=== PATIENT | male | born 1965 | race Caucasian/White ===

== ENCOUNTER 2017-04-13 11:25 | Emergency (ER) | payer OTHER ==
[~2017-04-13] VITALS: Ht 170.2 cm; Wt 91.1 kg
[~2017-04-13 11:25] MED LIST: ASPEC81 PO; ATOR-24 PO; CRD4 PO; LEVO75TA36 PO; METF500T PO; METO-551 PO; NAPR1TAB9 PO; NRT/50 PO; NTRGSL/4 SL; PANT1TAB3 PO; SIMV80TA2 PO
[2017-04-13 11:28] VITALS: TEMP 38; Ht 170.2 cm; Wt 91.1 kg
[2017-04-13] MEDS ORDERED: ACETAMINOPHEN 500 MG TAB PO STA (11:54)
[2017-04-13] MEDS ORDERED: SODIUM CHLORIDE 0.9% 1000ML 1,000 ML IV STA (11:54)
--- NOTE | 2017-04-13 11:59 | EMERGENCY ROOM VISIT NOTE ---
History Report prepared by Margo: Jennifer Luna Under the Supervision of: Dr. Obdulio Valentine M.D. First contact with patient: 11:45 Chief Complaint: FEVER Stated Complaint: DISORIENTED, DIZZY, FEVER History of Present Illness The patient is a 52 year old male who presents to the Emergency Room with complaints of a persistent fever that began this morning. The patient states he has been disoriented, coughing, dizzy, and sweating. He denies any current chest pain, nausea, vomiting, diarrhea, or urinary symptoms. The patient denies taking any medication to relieve his symptoms. He notes that he began getting a cold about 1-2 days ago. The patient states that he previously had similar esophageal pain, noting it ended up being a heart attack 15 years ago. He states he has an inhaler, noting he does not use. He notes a history of hypertension. The patient states he smokes a pack of cigarettes or more a day. Source of History: patient Onset: this morning Position: other (global) Quality: other (fever) Timing: other (persistent) Associated Symptoms: No chest pain, No nausea, No vomiting, No diarrhea, No urinary symptoms Review of Systems See HPI for pertinent positives and negatives. A total of ten systems were reviewed and were otherwise negative. Past Medical & Surgical Medical Problems: (1) AC MYOCARD INFARC,ANTEROLAT WALL,EPIS CARE,UNSPEC (2) CORON ATHEROSCLER NOS TYPE VESSEL, NEZ PERCE OR GRAFT (3) DIAB MARY WO COMPL, TYPE II OR UNSPEC TYPE, NOT UNCNTRLD (4) HYPERLIPIDEMIA NEC/NOS (5) Placement of stent in coronary artery Family History Diabetes mellitus FHx: heart disease Hypertension Social History Smoking Status: Current Every Day Smoker Alcohol Use: occasionally Drug Use: none Marital Status: Occupation Status: employed Current/Historical Medications Scheduled Aspirin (Aspirin Ec), 162 MG PO DAILY Atorvastatin (Lipitor), 40 MG PO DAILY Azithromycin (Zithromax), 250 MG PO DAILY Doxazosin Mesylate (Doxazosin Mesylate), 4 MG PO DAILY Levothyroxine Sodium (Levothyroxine Sodium), 75 MCG PO DAILY Metformin Hcl (Glucophage), 500 MG PO DAILY Metoprolol Tartrate (Lopressor), 50 MG PO BID Nitroglycerin (Nitrostat), 0.4 MG SL DIRECTED Nortriptyline HCl (Nortriptyline HCl), 50 MG PO HS Pantoprazole (Protonix), 40 MG PO DAILY Prednisone (Prednisone), 3 TAB PO DAILY Simvastatin (Zocor), 80 MG PO QPM Allergies Coded Allergies: No Known Allergies (Unverified , 08/12/15) Physical Exam Vital Signs Date Time Temp Pulse Resp B/P (MAP) Pulse Ox O2 Delivery O2 Flow Rate FiO2 04/13/17 13:48 90 18 106/67 98 04/13/17 13:05 89 26 04/13/17 13:00 88 24 04/13/17 12:55 88 19 04/13/17 12:50 89 20 04/13/17 12:45 87 26 04/13/17 12:40 87 25 97 04/13/17 12:35 90 21 04/13/17 12:30 91 23 04/13/17 12:25 88 15 04/13/17 12:21 85 04/13/17 12:20 90 18 97 Room Air 04/13/17 12:20 86 20 04/13/17 12:12 94 Room Air 04/13/17 11:28 38.0 102 18 118/77 94 Room Air Physical Exam GENERAL: Awake, alert, uncomfortable-appearing, in no distress HENT: Dry mucous membranes. Normocephalic, atraumatic. Oropharynx unremarkable. EYES: Normal conjunctiva. Sclera non-icteric. NECK: Supple. No nuchal rigidity. FROM. No JVD. RESPIRATORY: Scattered wheezes and rhonchi. Clear to auscultation. CARDIAC: Regular rate, normal rhythm. Extremities warm and well perfused. Pulses equal. ABDOMEN: Soft, non-distended. No tenderness to palpation. No rebound or guarding. No masses. RECTAL: Deferred. MUSCULOSKELETAL: Chest examination reveals no tenderness. The back is symmetrical on inspection without obvious abnormality. There is no CVA tenderness to palpation. No joint edema. LOWER EXTREMITIES: Calves are equal size bilaterally and non-tender. No edema. No discoloration. NEURO: Normal sensorium. No sensory or motor deficits noted. SKIN: No rash or jaundice noted. Medical Decision & Procedures ER Provider Diagnostic Interpretation: Radiology results as stated below per my review and radiologist interpretation: CHEST ONE VIEW PORTABLE HISTORY: 52 years-old Male CHEST PAIN acute atypical chest pain COMPARISON: Portable chest radiograph 08/12/2015 TECHNIQUE: Portable AP view of the chest FINDINGS: Cardiomediastinal and hilar silhouettes are within normal limits. No pneumothorax, pleural effusion, focal airspace consolidation or overt pulmonary edema. Linear subsegmental pleural based opacities of the lateral left midlung and left lung base are again seen suggesting areas of atelectasis or scarring. Bones of the chest appear to be grossly intact. IMPRESSION: No acute process. The above report was generated using voice recognition software. It may contain grammatical, syntax or spelling errors. Electronically signed by: Matthieu Pitts M.D. 04/13/2017 12:33 PM Dictated Date/Time: 04/13/2017 12:32 PM Laboratory Results 04/13/17 12:36 Red Blood Count 4.91, Mean Corpuscular Volume 93.3, Mean Corpuscular Hemoglobin 32.2, Mean Corpuscular Hemoglobin Concent 34.5, Mean Platelet Volume 9.4, Neutrophils (%) (Auto) 77.7, Lymphocytes (%) (Auto) 7.9, Monocytes (%) (Auto) 11.0, Eosinophils (%) (Auto) 2.3, Basophils (%) (Auto) 0.5, Neutrophils # (Auto ) 6.78, Lymphocytes # (Auto) 0.69, Monocytes # (Auto) 0.96, Eosinophils # (Auto ) 0.20, Basophils # (Auto) 0.04 04/13/17 12:36 Test 04/13/17 12:36 04/13/17 12:50 White Blood Count 8.72 K/uL (4.8-10.8) Red Blood Count 4.91 M/uL (4.7-6.1) Hemoglobin 15.8 g/dL (14.0-18.0) Hematocrit 45.8 % (42-52) Mean Corpuscular Volume 93.3 fL (80-100) Mean Corpuscular Hemoglobin 32.2 pg (25-34) Mean Corpuscular Hemoglobin Concent 34.5 g/dl (32-36) Platelet Count 221 K/uL (130-400) Mean Platelet Volume 9.4 fL (7.4-10.4) Neutrophils (%) (Auto) 77.7 % Lymphocytes (%) (Auto) 7.9 % Monocytes (%) (Auto) 11.0 % Eosinophils (%) (Auto) 2.3 % Basophils (%) (Auto) 0.5 % Neutrophils # (Auto) 6.78 K/uL (1.4-6.5) Lymphocytes # (Auto) 0.69 K/uL (1.2-3.4) Monocytes # (Auto) 0.96 K/uL (0.11-0.59) Eosinophils # (Auto) 0.20 K/uL (0-0.5) Basophils # (Auto) 0.04 K/uL (0-0.2) RDW Standard Deviation 46.2 fL (36.4-46.3) RDW Coefficient of Variation 13.6 % (11.5-14.5) Immature Granulocyte % (Auto) 0.6 % Immature Granulocyte # (Auto) 0.05 K/uL (0.00-0.02) Anion Gap 7.0 mmol/L (3-11) Est Creatinine Clear Calc Drug Dose 70.5 ml/min Estimated GFR () 72.4 Estimated GFR (Non- 62.4 BUN/Creatinine Ratio 6.8 (10-20) Calcium Level 9.3 mg/dl (8.5-10.1) Total Bilirubin 0.5 mg/dl (0.2-1) Direct Bilirubin < 0.1 mg/dl (0-0.2) Aspartate Amino Transf (AST/SGOT) 72 U/L (15-37) Alanine Aminotransferase (ALT/SGPT) 123 U/L (12-78) Alkaline Phosphatase 93 U/L (45-117) Troponin I < 0.015 ng/ml (0-0.045) Total Protein 7.9 gm/dl (6.4-8.2) Albumin 4.1 gm/dl (3.4-5.0) Lipase 228 U/L (73-393) Influenza Type A (RT-PCR) Neg for Influ A (NEG) Influenza Type A Antigen Neg for Influ A (NEG) Influenza Type B Antigen Neg for Influ B (NEG) Influenza Type B (RT-PCR) POS for Influ B (NEG) Laboratory results reviewed by me Medications Administered Medications (Trade) Dose Ordered Sig/Lillie Route Start Time Stop Time Status Last Admin Dose Admin Sodium Chloride 1,000 ml @ 999 mls/hr Q1H1M STAT IV 04/13/17 11:54 04/13/17 12:54 DC 04/13/17 12:29 999 MLS/HR Acetaminophen (Tylenol Tab) 1,000 mg NOW STAT PO 04/13/17 11:54 04/13/17 12:00 DC 04/13/17 12:27 1,000 MG Albuterol/ Ipratropium (Duoneb) 12 ml ONE ONCE INH 04/13/17 12:00 04/13/17 12:01 DC 04/13/17 12:19 12 ML Prednisone (PredniSONE TAB) 60 mg NOW STAT PO 04/13/17 11:54 04/13/17 12:01 DC 04/13/17 12:27 60 MG Azithromycin (Zithromax Tab) 500 mg NOW ONCE PO 04/13/17 13:30 04/13/17 13:31 DC 04/13/17 13:47 500 MG ECG Indication: other (fever) Rate (beats per minute): 91 Rhythm: normal sinus Findings: no acute ischemic change, other (normal axis) ED Course 1248: The patient was evaluated in room C3. A complete history and physical exam was performed. 1333: I reevaluated the patient, who was feeling significantly better. I discussed the test findings and treatment plan with the patient, who verbalized complete understanding and agreement. The patient was discharged home. Medical Decision I reviewed the patient's past medical history, medications, and the nursing notes as described above. The patient's presentation and history were concerning for pneumonia, bronchitis , influenza, ACS, CHF, and COPD. The patient is 52-year-old gentleman with a past medical history of smoking one pack per day presents to the emergency department with cough congestion shortness of breath per hpi. Arrival the patient is uncomfortable but in no acute distress, Temp 38.0 with otherwise stable vital signs. Labs unremarkable. CXR negative for pneumonia. She was given steroids with nebulizer with improvement in symptoms. The patient's productive sputum and history of smoking will treat with azithromycin. Findings and plan for follow- up reviewed with patient. Patient agreeable and d/c'd per discharge instructions. Of note, after patient's discharge, patient's reflex influenza PCR return positive for influenza A. Considering his symptom onset with was within 48 hours and comorbidities of smoking, prescription for Tamiflu was called to his pharmacy and patient was updated. Medication Reconcilliation Current Medication List: was personally reviewed by me Impression Primary Impression: Acute bronchitis Scribe Attestation The scribe's documentation has been prepared under my direction and personally reviewed by me in its entirety. I confirm that the note above accurately reflects all work, treatment, procedures, and medical decision making performed by me. Departure Information Dispostion Home / Self-Care Prescriptions Prednisone (Prednisone) 20 Mg Tab 3 TAB PO DAILY for 4 Days, #12 TAB FOR 4 DAYS Prov: Obdulio Valentine M.D. 04/13/17 Azithromycin (Zithromax) 250 Mg Tab 250 MG PO DAILY, #4 TAB Prov: Obdulio Valentine M.D. 04/13/17 Referrals Dario Modi M.D. (MEDICAL) (PCP) Forms HOME CARE DOCUMENTATION FORM, IMPORTANT VISIT INFORMATION Patient Instructions ED Bronchitis Asthmatic, ED Smoking Cessation, My [facility] Additional Instructions Please follow up with your primary care physician on Sunday for re-evaluation. You likely have an acute bronchitis. Otherwise, your exam, EKG, and lab results did not show signs of an emergent condition at this time. Azithromycin and Prednisone as directed. Use your inhaler every 4 hours for the next 48 hours and then thereafter as needed. Ensure hydration You should consider stopping smoking as this will help relieve and help prevent your current symptoms. Return to the emergency department for worsening symptoms as described in the accompanying instructions.
[2017-04-13] MEDS ORDERED: ALBUT/IPRATROP 3MG/0.5MG NEB 3 ML VIAL INH ONE (12:00)
[2017-04-13] MEDS ORDERED: ASPI81TA28 PO (12:07)
[2017-04-13] MEDS ORDERED: LEVO75TA5 PO (12:07)
[2017-04-13 12:12] VITALS: O2SAT 94
[2017-04-13 12:20] VITALS: PULSE 90; O2SAT 97
--- NOTE | 2017-04-13 12:34 | DIAGNOSTIC IMAGING REPORT ---
CHEST ONE VIEW PORTABLE HISTORY: 52 years-old Male CHEST PAIN acute atypical chest pain COMPARISON: Portable chest radiograph 08/12/2015 TECHNIQUE: Portable AP view of the chest FINDINGS: Cardiomediastinal and hilar silhouettes are within normal limits. No pneumothorax, pleural effusion, focal airspace consolidation or overt pulmonary edema. Linear subsegmental pleural based opacities of the lateral left midlung and left lung base are again seen suggesting areas of atelectasis or scarring. Bones of the chest appear to be grossly intact. IMPRESSION: No acute process. The above report was generated using voice recognition software. It may contain grammatical, syntax or spelling errors. Electronically signed by: Matthieu Pitts M.D. 04/13/2017 12:33 PM Dictated Date/Time: 04/13/2017 12:32 PM
[2017-04-13 12:47] LABS: BASO % 0.5 %; BASO ABS # 0.04 K/uL (0-0.2); EOS % 2.3 %; HEMATOCRIT 45.8 % (42-52); HEMOGLOBIN 15.8 g/dL (14.0-18.0); IG# 0.05 K/uL (0.00-0.02); LYMPH % 7.9 %; LYMPH ABS # 0.69 K/uL (1.2-3.4); MEAN CELL VOLUME 93.3 fL (80-100); MEAN CORPUSCULAR HEMOGLOBIN 32.2 pg (25-34); MEAN CORPUSCULAR HGB CONC 34.5 g/dl (32-36); MEAN PLATELET VOLUME 9.4 fL (7.4-10.4); MONO ABS # 0.96 K/uL (0.11-0.59); NEUT % 77.7 %; NEUT ABS # 6.78 K/uL (1.4-6.5); PLATELET COUNT 221 K/uL (130-400); RED CELL DISTRIBUTION WIDTH CV 13.6 % (11.5-14.5); RED CELL DISTRIBUTION WIDTH SD 46.2 fL (36.4-46.3); WHITE BLOOD COUNT 8.72 K/uL (4.8-10.8)
[2017-04-13 13:04] LABS: ALBUMIN 4.1 gm/dl (3.4-5.0); ALT/SGPT 123 U/L (12-78); AST/SGOT 72 U/L (15-37); BLOOD UREA NITROGEN 9 mg/dl (7-18); CALCIUM 9.3 mg/dl (8.5-10.1); CARBON DIOXIDE 28 mmol/L (21-32); CREATININE 1.29 mg/dl (0.60-1.40); GLUCOSE 97 mg/dl (70-99); LIPASE 228 U/L (73-393); SODIUM 137 mmol/L (136-145)
[2017-04-13 13:10] LABS: ALKALINE PHOSPHATASE 93 U/L (45-117); TOTAL PROTEIN 7.9 gm/dl (6.4-8.2)
[2017-04-13] MEDS ORDERED: AZITHROMYCIN 250 MG TAB PO ONE (13:30)
[2017-04-13] MEDS ORDERED: PRED20TA PO (13:35)
[2017-04-13] MEDS ORDERED: AZIT250T PO (13:35)
[2017-04-13 13:48] VITALS: BP 106/67; PULSE 90; O2SAT 98
[2017-04-13 14:12] LABS: INFLUENZA A PCR Neg for Influ A (NEG); INFLUENZA B ANTIGEN Neg for Influ B (NEG)
[2017-04-13 14:14] LABS: INFLUENZA B PCR POS for Influ B (NEG)
--- NOTE | 2017-04-13 16:58 | Pharmacy Progress Note ---
ED Pharmacist Progress Note Date of Service: Apr 13, 2017. Received call from patient's in regards to tamiflu prescription that was to be called in to [facility] in [place]- patient went to store but only received prednisone and azithromycin. Followed up with [facility]. I spoke with the pharmacist who confirmed the prescription was received and being filled. Called back patient and informed them the prescription was received and being filled.
== END 2017-04-13 13:51 | disposition home or self-care (01) ==
LOC: C.EDB 11:27
DX: J20.9 Acute bronchitis, unspecified (principal); J11.1 Influenza due to unidentified influenza virus with other respiratory manifestations; I10 Essential (primary) hypertension; F17.210 Nicotine dependence, cigarettes, uncomplicated; I25.2 Old myocardial infarction; I25.10 Atherosclerotic heart disease of native coronary artery without angina pectoris; E11.9 Type 2 diabetes mellitus without complications; E78.5 Hyperlipidemia, unspecified; Z95.5 Presence of coronary angioplasty implant and graft; Z79.82 Long term (current) use of aspirin; Z79.84 Long term (current) use of oral hypoglycemic drugs; Z83.3 Family history of diabetes mellitus; Z82.49 Family history of ischemic heart disease and other diseases of the circulatory system

== ENCOUNTER 2017-11-11 21:40 | Emergency (ER) | payer OTHER ==
[~2017-11-11] VITALS: Ht 167.6 cm; Wt 87.0 kg
[~2017-11-11 21:40] MED LIST changes: -ASPEC81 PO; +ASPI81TA28 PO; -LEVO75TA36 PO; +LEVO75TA5 PO; -NAPR1TAB9 PO
[2017-11-11 21:54] VITALS: TEMP 36.8; Ht 167.6 cm; Wt 87.0 kg
[2017-11-11] MEDS ORDERED: LISI-461 PO (22:09)
[2017-11-11] MEDS ORDERED: AZITHROMYCIN 250 MG TAB PO ONE (22:15)
[2017-11-11] MEDS ORDERED: AZIT250T PO (22:30)
[2017-11-11] MEDS ORDERED: PRED20TA2 PO (22:30)
[2017-11-11 22:39] VITALS: BP 129/76; PULSE 91; O2SAT 99
--- NOTE | 2017-11-12 05:24 | EMERGENCY ROOM VISIT NOTE ---
History First contact with patient: 22:08 Chief Complaint: CONGESTION Stated Complaint: COLD, STUFFY NOSE Nursing Triage Summary: Patient reports nasal congestion and cough x1 1/2 weeks. States nasal drainage is yellowish-green. Denies fevers. History of Present Illness The patient is a 52 year old male who presents to the Emergency Room with complaints of sinus congestion, cough, and wheezing over the past 10 days. The patient has a history of COPD and has not had anything [id number] for his symptoms. The patient denies fever or chills. He has had pneumonia in the past and this is what he is concerned about. The patient rates his current discomfort a 4/10. His discomfort seems to worsen at night. Review of Systems More than 10 systems were reviewed and otherwise negative with the exception of history of present illness. Past Medical/Surgical History Medical Problems: (1) AC MYOCARD INFARC,ANTEROLAT WALL,EPIS CARE,UNSPEC (2) CORON ATHEROSCLER NOS TYPE VESSEL, [place] OR GRAFT (3) DIAB MARY WO COMPL, TYPE II OR UNSPEC TYPE, NOT UNCNTRLD (4) HYPERLIPIDEMIA NEC/NOS (5) Placement of stent in coronary artery Family History Diabetes mellitus FHx: heart disease Hypertension Social History Smoking Status: Current Every Day Smoker Alcohol Use: occasionally Drug Use: none Marital Status: Occupation Status: employed Current/Historical Medications Scheduled Aspirin (Aspirin Ec), 162 MG PO DAILY Atorvastatin (Lipitor), 40 MG PO DAILY Azithromycin (Zithromax), 250 MG PO DAILY Doxazosin Mesylate (Doxazosin Mesylate), 4 MG PO DAILY Levothyroxine Sodium (Levothyroxine Sodium), 75 MCG PO DAILY Lisinopril (Lisinopril), 10 MG PO DAILY Metformin Hcl (Glucophage), 500 MG PO DAILY Nitroglycerin (Nitrostat), 0.4 MG SL DIRECTED Nortriptyline HCl (Nortriptyline HCl), 50 MG PO HS Pantoprazole (Protonix), 40 MG PO DAILY Prednisone (Prednisone Tab), 2 TAB PO DAILY Simvastatin (Zocor), 80 MG PO QPM Physical Exam Vital Signs Date Time Temp Pulse Resp B/P (MAP) Pulse Ox O2 Delivery O2 Flow Rate FiO2 11/11/17 22:39 91 20 129/76 99 11/11/17 21:54 36.8 97 20 132/79 98 Room Air Physical Exam VITALS: Vitals are noted on the nurse's note and reviewed by myself. Vital signs stable. GENERAL: Well-developed, well-nourished, white male, who is in no acute distress and resting comfortably. Patient is cooperative with the examination. HEAD: Normocephalic atraumatic. EARS: External ear normal. External auditory canals clear, tympanic membranes pearly de jesus without erythema or effusion bilaterally. EYES: Pupils equal round and reactive to light and accommodation. Conjunctivae without injection, sclerae without icterus. Extraocular movements intact. NOSE: Patent, turbinates without inflammation or discharge. MOUTH: Mucous membranes moist. Tonsils are not enlarged. Pharynx without erythema, blood, or exudate. Uvula midline. Airway patent. NECK: Supple without nuchal rigidity. No lymphadenopathy. No thyromegaly. Cervical spine is nontender. HEART: Regular rate and rhythm without murmurs gallops or rubs. LUNGS: Coarse rhonchi throughout with scattered wheezing Medical Decision & Procedures Medications Administered Medications (Trade) Dose Ordered Sig/Lillie Route Start Time Stop Time Status Last Admin Dose Admin Azithromycin (Zithromax Tab) 500 mg NOW ONCE PO 11/11/17 22:15 11/11/17 22:16 DC 11/11/17 22:23 500 MG Prednisone (PredniSONE TAB) 20 mg NOW STAT PO 11/11/17 22:13 11/11/17 22:15 DC 11/11/17 22:24 20 MG ED Course Physical exam and history were performed. Nursing notes, EMR, and Medication List were personally reviewed. Patient appears to have chest congestion symptoms for the past 10 days. On examination he does have some wheezing rhonchi throughout. He does have a history of some mild COPD. He does not appear in acute respiratory failure or other distress. I discussed options of care with the patient, and will start him on Zithromax and prednisone here in the department. The patient will be given a continuation prescriptions of these medications. He was asked to follow with his primary care physician in the next few days for recheck. He was otherwise invited back to the ER with any new, worsening, or concerning symptoms. The chart was completed utilizing [employer] Voice Recognition Software. Grammatical errors, random word insertions, pronoun errors, and incomplete sentences are an occasional consequence of this system due to software limitations, ambient noise, and hardware issues. Any formal questions or concerns about the content, text, or information contained within the body of this dictation should be directly addressed to the provider for clarification. . Medical Decision Differential diagnosis: Etiologies such as infections, reactive airway disease, pneumonia, pneumothorax , COPD, CHF, cardiac ischemia, pulmonary embolism, musculoskeletal, gastrointestinal, as well as others were entertained. Impression Primary Impression: Acute bronchitis Departure Information Dispostion Home / Self-Care Condition GOOD Prescriptions Prednisone (Prednisone Tab) 20 Mg Tab 2 TAB PO DAILY for 4 Days, #8 TAB Prov: Matty Amaya PA-C 11/11/17 Azithromycin (Zithromax) 250 Mg Tab 250 MG PO DAILY for 4 Days, #4 TAB Prov: Matty Amaya PA-C 11/11/17 Forms HOME CARE DOCUMENTATION FORM, IMPORTANT VISIT INFORMATION Patient Instructions My [facility] Additional Instructions You were seen and evaluated today on an emergency basis only. This is not a substitute for, or an effort to provide, complete comprehensive medical care. It is not possible to recognize and treat all injuries or illnesses in a single emergency department visit. For this reason it is recommended that you followup with your primary care physician with any ongoing or persisting symptoms. Take Zithromax 250 mg daily for the next 4 days. Take prednisone 40 mg daily for the next 4 days. You are welcome to return to the emergency department anytime with new, worsening, or concerning symptoms.
== END 2017-11-11 22:39 | disposition home or self-care (01) ==
LOC: C.EDB 21:42 → C.EDA 22:39
DX: J20.9 Acute bronchitis, unspecified (principal); I25.2 Old myocardial infarction; I25.10 Atherosclerotic heart disease of native coronary artery without angina pectoris; E11.9 Type 2 diabetes mellitus without complications; E78.5 Hyperlipidemia, unspecified; F17.200 Nicotine dependence, unspecified, uncomplicated; Z79.82 Long term (current) use of aspirin

== ENCOUNTER 2024-07-06 21:35 | Observation (INO) ==
--- OUTSIDE RECORDS SUMMARY | 2024-07-06 21:41 | External Medical Summary | Summary of Care ---
Author Name Unknown Organization [facility] Address [address] [place] [address] Phone [phone] Care Team Providers Care Immigration Specialist Name Role Phone Mariaa Paige PA-C Primary Care Provider [phone] Encounter Details Date Type Department Care Team (Late st Contact Info) Description 04/28/2024 Population Health External Data Unspecified Department Allergies No known active allergiesdocumented as of this encounter (statuses as of 04/28/2024) Medications ASPIRIN 81 MG PO CHEW Take by mouth every afternoon . 60 Tab 5 4 Active Tamsulosin HCl 0.4 MG Oral Capsule (Flomax)Indication s:BPH with obstruction/lower urinary tract symptoms Take 1 Capsule by mouth in the morning. 90 Capsule 3 Active Omeprazole 20 MG Oral Capsule Delayed Release (PriLOSEC)Indicati ons:Gastroesophage al reflux disease without esophagitis take 1 capsule by mouth every morning and 1 capsule by mouth BEFORE BEDTIME 180 Capsule 1 4 Active Lisinopril 10 MG Oral Tablet (Prinivil)Indicati ons:ASCVD (arteriosclerotic cardiovascular disease),Type 2 diabetes mellitus with hemoglobin A1c goal of less than 7.0% (HCC),Old myocardial infarction,Essenti al hypertension with goal blood pressure less than 140/90 Take 1 Tablet by mouth in the morning. 90 Tablet 2 4 Active Levothyroxine Sodium 100 MCG Oral Tablet (Levoxyl)Indicatio ns:Acquired hypothyroidism take 1 tablet by mouth every morning 30 MINUTES PRIOR TO BREAKFAST OR OTHER MEDS 90 Tablet 2 4 Active Finasteride 5 MG Oral Tablet (Proscar) Take 1 Tablet by mouth in the morning. 90 Tablet 3 4 Active Famotidine 40 MG Oral Tablet (Pepcid)Indication s:Heartburn Take 1 Tablet by mouth at bedtime as needed for Heartburn. 90 Tablet 1 4 Active Glucose Blood In Vitro StripIndications:T ype 2 diabetes mellitus with hemoglobin A1c goal of less than 7.0% ([facility]) Use up to four times a day as directed 400 Strip 3 4 Active B-12-SL 1000 MCG Sublingual Tablet Sublingual (Cyanocobalamin)In dications:Malaise and fatigue,B12 deficiency Place 1,000 mcg under the tongue in the morning. 90 Tablet 3 4 Active Magnesium 400 MG Oral TabletIndications: Intractable tension-type headache, unspecified chronicity pattern Take 400 mg by mouth at bedtime. To prevent headaches 90 Tablet 1 4 Active Riboflavin 400 MG Oral TabletIndications: Intractable tension-type headache, unspecified chronicity pattern Take 1 Tablet by mouth in the morning. For headache -prevention. 90 Tablet 1 4 Active Ketorolac Tromethamine 10 MG Oral Tablet (Toradol)Danieltio ns:Intractable tension-type headache, unspecified chronicity pattern Take 1 Tablet by mouth 4 times a day as needed for Pain, Severe. Do not take for longer than 5 days 20 Tablet 4 Active Rizatriptan Benzoate 10 MG Oral Tablet Disintegrating (Maxalt[employer])Indica tions:Intractable tension-type headache, unspecified chronicity pattern Take 1 Tablet by mouth as needed for Migraine. at onset of headache, may repeat every 2 hours. No more than 3 pills in 24 hours 20 Tablet 3 4 Active Rosuvastatin Calcium 40 MG Oral Tablet (Crestor)Danieltio ns:ASCVD (arteriosclerotic cardiovascular disease),Mixed dyslipidemia TAKE 1 TABLET BY MOUTH EVERY DAY IN THE MORNING 90 Tablet 1 4 Active Escitalopram Oxalate 10 MG Oral Tablet (Lexapro)Danieltio ns:Moderate episode of recurrent major depressive disorder (HCC) Take 1.5 Tablets by mouth in the morning. 135 Tablet 3 4 Active Topiramate 100 MG Oral Tablet (topAMAX)Indicatio ns:Intractable chronic cluster headache TAKE 1 TABLET BY MOUTH IN THE MORNING AND BEFORE BEDTIME 180 Tablet 4 Active glipiZIDE ER 5 MG Oral Tablet Extended Release 24 Hour (glipiZIDE XL)Indications:Typ e 2 diabetes mellitus with hemoglobin A1c goal of less than 7.0% (HCC) Take 1 Tablet by mouth in the morning. 30 minutes before a meal.. 90 Tablet 1 5 Active traZODone HCl 50 MG Oral Tablet (Desyrel)Indicatio ns:Insomnia, unspecified type,Agitation Take 1 Tablet by mouth at bedtime. 90 Tablet 2 5 Active Pindolol 5 MG Oral TabletIndications: Essential tremor Take 1 Tablet by mouth in the morning and 1 Tablet before bedtime. 60 Tablet 1 5 Active Hospital, Clinic, or Other Facility Administered Medication Ordered Dose Route Frequency Start Date End Date Status albuterol sulfate (PROVENTIL) (2.5 MG/3ML) 0.083% inhalation solution 2.5 mgIndications:COPD, severity to be determined ([facility]) 2.5 mg NEBULIZER Q4H PRN 07/26/2017 Active documented as of this encounter (statuses as of 04/28/2024) Active Problems Problem Noted Date Diagnosed Date Chronic obstructive pulmonary disease 04/23/2023 Moderate episode of recurrent major depressive d isorder 04/23/2023 S/P laparoscopic cholecystectomy 03/29/2018 Overview (03/29/2018): s/p a lap bilateral inguinal hernia repairs with mesh and lap [facility] on 02/18/2018 Screen for colon cancer 03/29/2018 Familial colorectal cancer 03/29/2018 NAFL (nonalcoholic fatty liver) 12/21/2017 Overweight (BMI 25.0-29.9) 12/21/2017 HTN, goal below 130/80 06/07/2017 Dyslipidemia, goal LDL below 70 12/01/2016 Overview (04/06/2018): 03/26-HC nml, lipids improved on crestor. Left knee DJD 02/27/2013 Vitamin D deficiency 02/17/2013 Old myocardial infarction 08/08/2012 Postsurgical percutaneous tr ansluminal coronary angioplasty status 08/08/2012 Acquired hypothyroidism 02/22/2012 Type 2 diabetes mellitus wit h hemoglobin A1c goal of less than 7.0% 02/22/2012 Overview (08/03/2015): ICD-10 update of inactive term Chronic rhinitis 09/21/2011 ASCVD (arteriosclerotic cardiovascular disease) 09/21/2011 Tobacco use disorder 09/21/2011 BPH with obstruction/lower urinary tract symptom s documented as of this encounter (statuses as of 04/28/2024) Resolved Problems Problem Noted Date Diagnosed Date Resolved Date Dyslipidemia, goal LDL below 70 12/05/2016 06/07/2017 Obesity, Class I, BMI 30.0-3 4.9 (see actual BMI) 06/22/2016 12/01/2016 Overview (06/22/2016): bmi= 30.13 06/22/16 Screening for prostate cancer 04/06/2015 12/01/2016 Screen for colon cancer 06/24/201311/08 Hematuria 04/21/2013 04/06/2015 Acute URI 04/15/2013 04/06/2015 Special screening for malign ant neoplasm of prostate 02/17/2013 12/01/2016 Screening for colon cancer 02/17/2013 0 12/01/2016 Left knee DJD 07/26/2012 04/06/2015 Abdominal pain 05/16/2012 12/01/2016 Old myocardial infarct 02/22/201208/08 Mixed dyslipidemia 02/22/2012 8 BPH without obstruction/lowe r urinary tract symptoms 02/22/2012 06/07/2017 Dyslipidemia, goal LDL below 100 01/16/2012 12/01/2016 Hypertriglyceridemia 01/16/2012 015 Diarrhea 09/21/2011 12/01/2016 Overweight, BMI 28.59 01/12/11 01/12/2011 12/01/2016 Type 2 diabetes mellitus wit h hemoglobin A1c goal of less than 7.0% 04/21/2010 05/16/2012 Overview (08/03/2015): ICD-10 update of inactive term DM type 1, not at goal 01/20/201004/21 Hypothyroidism 01/18/2010 02/22/2012 Acute conjunctivitis 08/05/2009 015 Dyslipidemia, goal LDL below 70 03/25/2009 01/16/2012 Overview (03/25/2009): Per Lipid Taxonomy. Abnormal results of liver function studies 11/12/2008 04/06/2015 DERMATITIS, EAR CANALS 09/11/200804/06 PAIN IN LIMB, LEFT ELBOW 09/11/2008 Allergic rhinitis 09/11/2008 04/06/2015 OVERWEIGHT, BMI= 27.12 09/11/08 09/11/2008 12/01/2016 High triglycerides 04/01/2008 2 ADVANCE DIRECTIVE INFORMATION 12/30/2004 04/06/2015 Overview (12/30/2004): no advance directive- has info Old myocardial infarct 12/30/200302/21 Tobacco use disorder 12/30/2003 012 ROUTINE MEDICAL EXAM 12/30/2003 015 Malaise and fatigue 12/30/2003 12/31/19 05 Polyuria 12/30/2003 12/30/2004 TENDONITIS, LEFT SHOULDER 01/06/2003 Chest pain 12/25/2002 12/30/2003 S/P PRIMARY ANGIOPLASTY WITH STENT 12/25/2002 08/08/2012 Esophageal reflux 12/25/2002 04/06/2015 Femoral artery hematoma comp licating cardiac catheterization 11/21/2002 03/29/2018 Mixed dyslipidemia 11/21/2002 9 Overview (03/25/2009): Per Lipid Taxonomy. Coronary atherosclerosis 11/21/200205/2012 ASCVD 11/19/2002 08/08/2012 Contusion of wrist 04/29/2001 4 SPRAINS AND STRAINS, WRIST, EXTENSOR TENDONS 2 12/30/2003 documented as of this encounter (statuses as of 04/28/2024) Immunizations Name Administration Dates Next Due PPD 08/08/2012 Pneumococcal Polysaccharide PPV23 (Pneumovax) 03/02/2008 Seasonal Influenza Vac., MDV , IM, 0.5 mL (Fluzone) 03/31/2014,02/17/2013,12/22/2011,12/09,12/28/2009,04/16/2009,03/02/20 08,02/13/2007 03/31/2015 Seasonal Influenza, PF, 6 M & above, IM , (FluLaval or Fluzone) 02/03/2019,12/21/2017 Seasonal Influenza, Quadriva lent, No Preserve, IM 02/17/2016,04/06/2015 TDAP, Age 7 and older, IM (Adacel) 04/17,08/05/2008,08/05/2008(Defe rred: Patient Refused - has ma) documented as of this encounter Social History Tobacco Use Types Packs/Day Years Used Date Smoking Tobacco: Every Day Cigarettes 1.5 36 Smokeless Tobacco: Never Alcohol Use Standard Drinks/Week Comments Not Currently 0 (1 standard drink = 0.6 oz pur e alcohol) none PHQ-2 Answer Date Recorded PHQ Adult Total Score 0 07/17/2023 Hunger Vital Sign Answer Date Recorded Within the past 12 months, y ou worried that your food would run out before you got the money to buy more. Never true 05/16/19 24 Within the past 12 months, t he food you bought just didn't last and you didn't have money to get more. Never true 05/16/2023 Childcare Answer Date Recorded Do you feel overwhelmed with taking care of a child, family member or friend? No 05/16/2023 Does your family need help f inding childcare? (Household - for ages 0-17 years) Not on file 05/16/2023 Clothing Answer Date Recorded Have you been unable to get clothing when it was really needed? No 05/16/2023 Is your family able to get c lothes or diapers when needed? (Household - for ages 0-17 years) Not on file 05/16/2023 Personal Safety Answer Date Recorded Do you feel unsafe or have concerns for your saf ety? No 05/16/2023 Do you have concerns for you r family's safety? (Household - for ages 0-17 years) Not on file 05/16/2023 Utilities Answer Date Recorded Do you have trouble paying y our heating, water, or electric bill? No 05/16/2023 Is your family able to pay t he heat, water, or electric bill? (Household - for ages 0-17 years) Not on file 05/16/2023 Does your family have access to good internet? (Household - for ages 0-17 years) Not on file 05/16/2023 Employment Status Answer Date Recorded Are you unemployed or without regular income? No 05/16/2023 Does the household have a re gular source of income? (Household - for ages 0-17 years) Not on file 05/16/2023 Social Connections Answer Date Recorded How often do you feel lonely or isolated from th ose around you? Rarely 05/16/2023 Financial Resource Strain Answer Date R ecorded Do you have any trouble payi ng for your medications, or do you think you might in the future? No 05/16/2023 Does your family have troubl e paying for medicine? (Household - for ages 0-17 years) Not on file 05/16/2023 Transportation Needs Answer Date Record ed READ ONLY Do you have troubl e getting a ride to medical visits or work? Never True 05/16/2023 Does your family have a hard time getting a ride to doctors visits? (Household - for ages 0-17 years) Not on file 05/16/2023 Has lack of transportation k ept you from medical appointments, meetings, work, or from getting things needed for daily living? Check all that apply. (Adult - for ages 18 years and over) Not on file 05/16/2023 Do you (or your family) have trouble finding or paying for a ride (transportation)? (Household - for ages 0-17 years) Not on file 05/16/2023 Housing Stability Answer Date Recorded Do you currently live in a s helter or have no steady place to sleep at night? No 05/16/2023 READ ONLY Do you think you a re at risk of becoming homeless? No 05/16/2023 Does your family worry about paying for your home or becoming homeless? (Household - for ages 0-17 years) Not on file 0 05/16/2023 Are you homeless or worried that you might be in the future? (Adult - for ages 18 years and over) Not on file 4 Are you (or your family) vivian eless or worried that you might be in the future? (Household - for ages 0-17 years) Not on file Food Insecurity Answer Date Recorded Do you need food for this week? No 05/16/2023 Are you able to get enough f ood for your family? (Household - for ages 0-17 years) Not on file 05/16/2023 Does your family need food t his week? (Household - for ages 0-17 years) Not on file 05/16/2023 Do you always have enough fo od for your family? (Household - for ages 0-17 years) Not on file 05/16/2023 Sex and Gender Information Value Date Recorded Sex Assigned at Not on file Legal Sex Male 5:43 AM EST Gender Identity Not on file Sexual Orientation Not on file documented as of this encounter Plan of Treatment Upcoming Encounters Date Type Department Care Team (Late st Contact Info) Description 05/07/2024 10:40 AM EST NeuroDiagnostic Study Neurophysiology Zena Venita [place] [address] [place], [place] [id number] Bernard Ramos DO [address] [place] [id number] Scheduled Procedures Name Priority Associated Diagnoses Date/Ti me COLONOSCOPY FLEXIBLE PROXIMA L DIAGNOSTIC Recall History of colonic polyps Health Maintenance Due Date Last Done Comments Cologuard 01/10/2008 Fecal Occult Blood Test 01/10/2008 Sigmoidoscopy 01/10/2008 Pneumococcal Vaccine: 50+ Years (2 of 2 - PCV) 03/02/2009 03/02/2008 Lung Cancer Screening 2013 Zoster Vaccines (1 of 2) 2013 DISCUSS TOBACCO CESSATION (REFER TO SMARTSET #3291) 12/01/2017 12/01/2016 (Discussed), 09/29/2014 Diabetic Foot Exam 04/01/2020 04/01/2019, 1 06/06/2017, 06/07/2017, Additional history exists Diabetic Eye Exam 04/28/2020 04/28/2019, , 04/22/2018, Additional history exists COVID-19 Vaccine ( season) 2023 Influenza Vaccine (FLU shot) (#1) 2023 02/03/2019, 02/03/2019, 12/21/2017, Additional history exists Depression Monitoring 07/16/2024 07/17/2023 HbA1c 08/25/2024 02/26/2024, 11/0 04/2022, 09/29/2021, Additional history exists Colonoscopy 12/20/2024 12/20/2021, 12/08, 05/19/2019, Additional history exists Colorectal Cancer Screening 12/20/2024 Albumin/Creatinine Ratio 02/25/2025 024, 04/06/2023, 09/29/2021, Additional history exists GFR 02/25/2025 02/26/2024, 03/10, 02/07/2023, Additional history exists TSH 02/25/2025 02/26/2024, 04/2022, 12/21/2021, Additional history exists O2 ASSESSMENT COMPLETED IN PAST YEAR FOR COPD 04/17/2025 04/17/2024 DTap/Tdap Vaccines (3 - Td or Tdap) 04/17/2034 04/17/2024, 08/05/2008 Alpha-1 Antitrypsin Completed 02/26/2024 HPV (Gardasil) Vaccine Aged Out No lo nger eligible based on patient's age to complete this topic Hepatitis B Vaccine Aged Out No longe r eligible based on patient's age to complete this topic MENINGOCOCCAL (MENACTRA/MENVEO) Aged Out No longer eligible based on patient's age to complete this topic documented as of this encounter Medical Devices Implanted Type Area Atmospheric Physics Professor Device Identifier Shelf Expiration Date Model / Serial / Lot Mesh 3dmax 3.1x5.3in Rht Med - [id number] Implanted:Qty: 1 on 02/18/2018 by Luís Burciaga MD at [facility] Right: Abdomen CR BARD : DAVOL 08/04/2022 [id number] / / [id number] Mesh 3dmax 3.1x5.3in Lft Med - [id number] Implanted:Qty: 1 on 02/18/2018 by Luís Burciaga MD at OR [facility] Left: Abdomen CR BARD : DAVOL 07/04/2022 [id number] / / [id number] documented as of this encounter Care Teams Immigration Specialist Relationship Specialty Start Date End Date Mariaa Paige PA-C PCP - General Physician Customer Manager 04/21/19 documented as of this encounter
--- OUTSIDE RECORDS SUMMARY | 2024-07-06 21:41 | External Medical Summary | Summary of Care ---
Author Name Unknown Organization [facility] Address [address] [place] [address] Phone [phone] Care Team Providers Care Gastroenterology Physician Name Role Phone Mariaa Paige PA-C Primary Care Provider [phone] Reason for Visit * Reason Onset Date Comments Medication Refill 05/22/2024 Encounter Details Date Type Department Care Team (Late st Contact Info) Description 05/22/2024 Refill [facility] [address] [place] [address] Mariaa Paige PA-C [address] [place] [address] Essential tremor Allergies No known active allergiesdocumented as of this encounter (statuses as of 05/23/2024) Medications ASPIRIN 81 MG PO CHEW Take by mouth every afternoon . 60 Tab 5 03/31/20 14 Active Omeprazole 20 MG Oral Capsule Delayed Release (PriLOSEC)Indicati ons:Gastroesophage al reflux disease without esophagitis take 1 capsule by mouth every morning and 1 capsule by mouth BEFORE BEDTIME 180 Capsule 1 05/22/19 24 Active Levothyroxine Sodium 100 MCG Oral Tablet (Levoxyl)Indicatio ns:Acquired hypothyroidism take 1 tablet by mouth every morning 30 MINUTES PRIOR TO BREAKFAST OR OTHER MEDS 90 Tablet 2 05/31/19 24 Active Famotidine 40 MG Oral Tablet (Pepcid)Indication s:Heartburn Take 1 Tablet by mouth at bedtime as needed for Heartburn. 90 Tablet 05/31/19 24 Active Glucose Blood In Vitro StripIndications:T ype 2 diabetes mellitus with hemoglobin A1c goal of less than 7.0% ([facility]) Use up to four times a day as directed 400 Strip 3 05/31/19 24 Active B-12-SL 1000 MCG Sublingual Tablet Sublingual (Cyanocobalamin)In dications:Malaise and fatigue,B12 deficiency Place 1,000 mcg under the tongue in the morning. 90 Tablet 3 05/31/19 24 Active Magnesium 400 MG Oral TabletIndications: Intractable tension-type headache, unspecified chronicity pattern Take 400 mg by mouth at bedtime. To prevent headaches 90 Tablet 07/04/19 24 Active Riboflavin 400 MG Oral TabletIndications: Intractable tension-type headache, unspecified chronicity pattern Take 1 Tablet by mouth in the morning. For headache -prevention. 90 Tablet 1 07/04/19 24 Active Ketorolac Tromethamine 10 MG Oral Tablet (Toradol)Indicatio ns:Intractable tension-type headache, unspecified chronicity pattern Take 1 Tablet by mouth 4 times a day as needed for Pain, Severe. Do not take for longer than 5 days 20 Tablet 07/04/19 24 Active Rosuvastatin Calcium 40 MG Oral Tablet (Crestor)Indicatio ns:ASCVD (arteriosclerotic cardiovascular disease),Mixed dyslipidemia TAKE 1 TABLET BY MOUTH EVERY DAY IN THE MORNING 90 Tablet 1 07/05/19 24 Active Escitalopram Oxalate 10 MG Oral Tablet (Lexapro)Indicatio ns:Moderate episode of recurrent major depressive disorder (HCC) Take 1.5 Tablets by mouth in the morning. 135 Tablet 3 08/20/19 24 Active Topiramate 100 MG Oral Tablet (topAMAX)Indicatio ns:Intractable chronic cluster headache TAKE 1 TABLET BY MOUTH IN THE MORNING AND BEFORE BEDTIME 180 Tablet 10/16/19 24 Active glipiZIDE ER 5 MG Oral Tablet Extended Release 24 Hour (glipiZIDE XL)Indications:Typ e 2 diabetes mellitus with hemoglobin A1c goal of less than 7.0% ([facility]) Take 1 Tablet by mouth in the morning. 30 minutes before a meal.. 90 Tablet 1 04/17/19 25 Active traZODone HCl 50 MG Oral Tablet (Desyrel)Indicatio ns:Insomnia, unspecified type,Agitation Take 1 Tablet by mouth at bedtime. 90 Tablet 2 04/17/19 25 Active Lisinopril 10 MG Oral Tablet (Prinivil)Indicati ons:ASCVD (arteriosclerotic cardiovascular disease),Type 2 diabetes mellitus with hemoglobin A1c goal of less than 7.0% ([facility]),Old myocardial infarction,Essenti al hypertension with goal blood pressure less than 140/90 Take 1 Tablet by mouth in the morning. 90 Tablet 3 05/06/19 25 Active Tamsulosin HCl 0.4 MG Oral Capsule (Flomax)Indication s:BPH with obstruction/lower urinary tract symptoms Take 1 Capsule by mouth in the morning. 90 Capsule 3 05/06/19 25 Active Rizatriptan Benzoate 10 MG Oral Tablet Disintegrating (Maxalt-POT FLUXER)Indica tions:Intractable tension-type headache, unspecified chronicity pattern Take 1 Tablet by mouth as needed for Migraine. at onset of headache, may repeat every 2 hours. No more than 3 pills in 24 hours 20 Tablet 3 05/06/19 25 Active Finasteride 5 MG Oral Tablet (Proscar) Take 1 Tablet by mouth in the morning. 90 Tablet 3 05/06/19 25 Active Pindolol 5 MG Oral TabletIndications: Essential tremor Take 1 Tablet by mouth in the morning and 1 Tablet before bedtime. 180 Tablet 1 05/23/19 25 Active Pindolol 5 MG Oral TabletIndications: Essential tremor Take 1 Tablet by mouth in the morning and 1 Tablet before bedtime. 60 Tablet 1 04/17/19 25 025 Discontin ued(Refil l) Hospital, Clinic, or Other Facility Administered Medication Ordered Dose Route Frequency Start Date End Date Status albuterol sulfate (PROVENTIL) (2.5 MG/3ML) 0.083% inhalation solution 2.5 mgIndications:COPD, severity to be determined ([facility]) 2.5 mg NEBULIZER Q4H PRN 07/26/2017 Active documented as of this encounter (statuses as of 05/23/2024) Active Problems Problem Noted Date Diagnosed Date [...] as of this encounter (statuses as of 05/23/2024) Resolved Problems Problem Noted Date Diagnosed Date [...] as of this encounter (statuses as of 05/23/2024) Immunizations Name Administration Dates Next Due PPD 08/08/2012 Pneumococcal Polysaccharide PPV23 (Pneumovax) 03/02/2008 Seasonal Influenza Vac., MDV , IM, 0.5 mL (Fluzone) 03/31/2014,02/17/2013,12/22/2011,12/09,12/28/2009,04/16/2009,03/02/20 08,02/13/2007,04/05/2005 03/31/2015 Seasonal Influenza, PF, 6 M & [...] No 05/16/2023 Does the household have a [facility] source of income? (Household - for ages [...] 18 years and over) Not on file Are you (or your family) vivian eless [...] ages 0-17 years) Not on file 05/16/2023 Food Insecurity Answer Date Recorded Within the past 12 months, y ou worried that your food would run out before you got the money to buy more. Never true 05/16/19 24 Within the past 12 months, t he food you bought just didn't last and you didn't have money to get more. Never true 05/16/2023 Do you need food for this week? No 05/16/2023 Sex and Gender Information Value Date Recorded Sex Assigned at Not on file Legal Sex Male 5:43 AM EST Gender Identity Not on file Sexual Orientation Not on file documented as of this encounter Miscellaneous Notes * Telephone Encounter - Mariaa Paige PA-C - 05/23/2024 8:09 AM EST Inboxologist Note: Refill sent Mariaa Paige PA-C * Telephone Encounter - Mariaa Paige PA-C - 05/23/2024 8:08 AM ESTSigned Prescriptions: Disp Refills Pindolol 5 MG Oral Tablet 180 Ta*1 Sig: Take 1 Tablet by mouth in the morning and 1 Tablet before bedtime. Authorizing Provider: MARIAA PAIGE * Telephone Encounter - Shahzadkatiana Jessica TobarJESSE - 05/22/2024 4:39 PM EST Did you pend patient's preferred pharmacy and medication before forwarding?yes Pharmacy: [id number] [id number] [facility] Pending Prescriptions: Disp Refills Pindolol 5 MG Oral Tablet 60 Tab*1 Sig: Take 1 Tablet by mouth in the morning and 1 Tablet before bedtime. Last Visit: 04/17/2024 (in office), Visit date not found (telemedicine) Next Visit: Visit date not found If no future appointments scheduled, and last appointment is greater than a year ago, please schedule patient for a follow-up appointment Last date the medication was ordered: 04/17/2024 Is this request for a controlled substance?No Urine Drug Screen:No results found. However, due to the size of the patient record, not all encounters were searched. Please check Results Review for a complete set of results. Patient Phone Numbers Labs: Lab Results Component Value Date/Time CREAT 1.3 (H) 02/26/2024 10:59 AM CREAT 1.15 11/05/2021 12:00 AM CREAT 1.2 07/02/2018 12:08 PM POTASSIUM 3.8 02/26/2024 10:59 AM POTASSIUM 3.5 11/05/2021 12:00 AM POTASSIUM 4.7 07/02/2018 12:08 PM TSH 0.90 02/26/2024 10:59 AM TSH 0.47 02/03/2019 04:22 PM LDL 73 02/26/2024 10:59 AM LDL 30 12/01/2020 02:00 PM LDL 53 01/28/2020 01:02 PM LDL 02/03/2019 04:22 PM Uninterpretable, recommend direct LDL cholesterol testing. ALT 41 02/26/2024 10:59 AM ALT 82 (H) 08/02/2018 10:28 AM HGBA1C 5.9 (H) 02/26/2024 10:59 AM HGBA1C 6.1 (H) 05/22/2019 03:40 PM documented in this encounter Plan of Treatment Scheduled Procedures Name Priority Associated Diagnoses Date/Ti me COLONOSCOPY FLEXIBLE PROXIMA L DIAGNOSTIC Recall History of colonic polyps Health Maintenance Due Date Last Done Comments Cologuard 01/10/2008 Fecal Occult Blood Test 01/10/2008 Sigmoidoscopy 01/10/2008 Pneumococcal Vaccine: 50+ Years (2 of 2 - PCV) 03/02/2009 03/02/2008 Lung Cancer Screening 2013 Zoster Vaccines (1 of 2) 2013 DISCUSS TOBACCO CESSATION (REFER TO SMARTSET #1393) 12/01/2017 12/01/2016 (Discussed), 09/29/2014 Diabetic Foot Exam [...] 02/07/2023, Additional history exists TSH 02/25/2025 02/26/2024, 1104/2022, 12/21/2021, Additional history exists O2 ASSESSMENT COMPLETED [...] on patient's age to complete this topic Meningitis B Vaccine (Bexsero/Trumemba) Aged Out No longer eligible based on patient's age to complete this topic documented as of this encounter Medical Devices Implanted Type Area Hydroelectric Plant Electrician Device Identifier Shelf Expiration Date Model / Serial / Lot Mesh 3dmax 3.1x5.3in Rht Med - [id number] Implanted:Qty: 1 on 02/18/2018 by Luís Burciaga MD at OR [facility] Right: Abdomen CR BARD : DAVOL 08/04/2022 [id number] / / [id number] Mesh 3dmax 3.1x5.3in Lft Med - [id number] Implanted:Qty: 1 on 02/18/2018 by Luís Burciaga MD at OR [facility] Left: Abdomen CR BARD : DAVOL 07/04/2022 [id number] / / [id number] documented as of this encounter Visit Diagnoses Diagnosis Essential tremor Essential and other specified forms of tremor documented in this encounter Care Teams Gastroenterology Physician Relationship Specialty Start Date End Date Mariaa Paige PA-C PCP - General Physician Yarding Engineer 04/21/19 documented as of this encounter
--- OUTSIDE RECORDS SUMMARY | 2024-07-06 21:41 | External Medical Summary | Summary of Care ---
Author Name Unknown Organization [facility] Address [address] [place] [address] Phone [phone] Care Team Providers Care Infection Control Manager Name Role Phone Mariaa Paige PA-C Primary Care Provider [phone] Reason for Visit * Reason Onset Date Comments Medication Refill 05/22/2024 Encounter Details Date Type Department Care Team (Late st Contact Info) Description 05/22/2024 Refill [facility] [place] [address] [place] [address] Mariaa Paige PA-C [address] [place] [address] Essential tremor Allergies No known [...] A1c goal of less than 7.0% ([facility]) Use up to four times a day [...] A1c goal of less than 7.0% ([facility]) Take 1 Tablet by mouth in the [...] A1c goal of less than 7.0% ([facility]),Old myocardial infarction,Essenti al hypertension with goal blood pressure less than 140/90 Take 1 Tablet by mouth in the morning. 90 Tablet 3 05/06/19 25 Active Tamsulosin HCl 0.4 MG Oral Capsule (Flomax)Indication s:BPH with obstruction/lower urinary tract symptoms Take 1 Capsule by mouth in the morning. 90 Capsule 3 05/06/19 25 Active Rizatriptan Benzoate 10 MG Oral Tablet Disintegrating (Maxalt-TEMPER[place] KILN TENDER)Indica tions:Intractable tension-type headache, unspecified chronicity pattern Take [...] 2.5 mgIndications:COPD, severity to be determined ([facility]) 2.5 mg NEBULIZER Q4H PRN 07/26/2017 Active [...] No 05/16/2023 Does the household have a [facility] source of income? (Household - for ages [...] pharmacy and medication before forwarding?yes Pharmacy: [id number] [address] [facility] Pending Prescriptions: Disp Refills Pindolol 5 [...] 2013 DISCUSS TOBACCO CESSATION (REFER TO SMARTSET #3157) 12/01/2017 12/01/2016 (Discussed), 09/29/2014 Diabetic Foot Exam [...] this encounter Medical Devices Implanted Type Area Railway Switch Operator Device Identifier Shelf Expiration Date Model / Serial / Lot Mesh 3dmax 3.1x5.3in Rht Med - [id number] Implanted:Qty: 1 on 02/18/2018 by Luís Burciaga MD at OR [facility] Right: Abdomen CR BARD : DAVOL 08/04/2022 [id number] / / [id number] Mesh 3dmax 3.1x5.3in Lft Med - [id number] Implanted:Qty: 1 on 02/18/2018 by Luís Burciaga MD at OR [facility] Left: Abdomen CR BARD : DAVOL 07/04/2022 [id number] / / [id number] documented as of this encounter Visit Diagnoses Diagnosis Essential tremor Essential and other specified forms of tremor documented in this encounter Care Teams Infection Control Manager Relationship Specialty Start Date End Date Mariaa Paige PA-C PCP - General Physician Oil Pipe Inspector Helper 04/21/19 documented as of this encounter
[2024-07-06 22:06] LABS: Basophils # (auto) 0.07 K/uL (0.00-0.20); Basophils % (auto) 0.7 %; Eosinophils # (auto) 0.41 K/uL (0.00-0.50); Eosinophils % (auto) 4.1 %; Hematocrit (blood only) 44.8 % (42.0-52.0); Hemoglobin 15.1 g/dl (14.0-18.0); Immature Granulocytes # (auto) 0.04 K/uL (0.01-0.20); Immature Granulocytes % (auto) 0.4 %; Lymphocytes # (auto) 2.93 K/uL (1.20-3.40); Lymphocytes % (auto) 29.5 %; Mean Corpuscular Hemoglobin 31.1 pg (25.0-34.0); Mean Corpuscular Hgb Conc 33.7 g/dL (32.0-36.0); Mean Corpuscular Volume 92.4 fL (80.0-100.0); Mean Platelet Volume 9.1 fL (9.4-12.4); Monocytes # (auto) 0.94 K/uL (0.11-0.59); Monocytes % (auto) 9.5 %; Neutrophils # (auto) 5.55 K/uL (1.40-6.50); Neutrophils % (auto) 55.8 %; Platelet Count 290 K/uL (130-400); RDW Coefficient of Variation 12.8 % (11.5-14.5); RDW Standard Deviation 43.5 fL (36.4-46.3); Red Blood Count 4.85 M/uL (4.70-6.10); White Blood Count 9.94 K/ul (4.8-10.8)
[2024-07-06 22:19] LABS: Albumin Globulin Ratio 1.4 (0.9-2); Albumin Level 4.3 gm/dl (3.4-5.0); BUN Creatinine Ratio 8.8 (10-20); Bilirubin,Total 0.5 mg/dl (0.2-1.0); Calcium 9.1 mg/dl (8.6-10.3); Creatinine Clr Calc Pharmacy 62.3 ml/min; Magnesium 1.8 mg/dl (1.7-2.4); Potassium 4.1 mmol/L (3.5-5.1); Total Protein 7.3 gm/dl (6.0-8.3)
[2024-07-06 22:25] LABS: Troponin I High Sensitivity 3.8 pg/ml (0-20)
[2024-07-06 22:42] LABS: Prothrombin Time 10.8 Seconds (9.0-12.0)
--- NOTE | 2024-07-06 23:28 | Emergency Department Note ---
History of Present Illness General Chief complaint: Chest Pain Stated complaint: L ARM NUMBNESS, ACID REFLUX Time Seen by Provider: 07/06/24 21:48 History of Present Illness This 59-year-old continues to smoke with coronary disease presents ER for chest pain today after raking the leaves in the yard. Now symptoms have resolved. He does have pain down the arm. He has had pain down the arm for the past week or so he has been seeing the chiropractor. Patient states when he did get the chest pain he got nauseous and slightly sweaty with it. Patient denies fever, chills, cough, congestion, abdominal pain, dyspnea ,leg pain or swelling. Home Medications Medication Instructions Recorded Confirmed Type finasteride 5 mg tablet (Proscar) 5 mg PO QAM 07/02/18 07/06/24 History levothyroxine 100 mcg tablet 100 mcg PO DAILYBB 07/02/18 07/06/24 History (Synthroid) lisinopril 10 mg tablet (Zestril) 10 mg PO QAM 07/02/18 07/06/24 History rosuvastatin 40 mg tablet (Crestor) 40 mg PO QAM 07/02/18 07/06/24 History aspirin 81 mg tablet,delayed 81 mg PO QAM 12/05/20 07/06/24 History release famotidine 40 mg tablet 40 mg PO HS PRN Heartburn 12/26/21 07/06/24 History trazodone 50 mg tablet 50 mg PO HS 12/26/21 07/06/24 History escitalopram oxalate 10 mg tablet 15 mg PO QAM 02/14/23 07/06/24 History omeprazole 20 mg capsule,delayed 20 mg PO BID 02/14/23 07/06/24 History release mecobalamin (vitamin B12) 1,000 1,000 mcg sublingual QAM 07/01/23 07/06/24 History mcg disintegrating tablet,sublingual tamsulosin 0.4 mg capsule (Flomax) 0.4 mg PO QAM 07/01/23 07/06/24 History topiramate 100 mg tablet 100 mg PO BID 07/01/23 07/06/24 History glipizide 5 mg tablet, extended 5 mg PO DAILYBB 07/06/24 07/06/24 History release 24 hr magnesium oxide 400 mg PO HS 07/06/24 07/06/24 History pindolol 5 mg tablet 5 mg PO BID 07/06/24 07/06/24 History riboflavin (vitamin B2) 100 mg 400 mg PO DAILY 07/06/24 07/06/24 History tablet (Vitamin B-2) rizatriptan 10 mg disintegrating 10 mg PO DIRECTED PRN Migraine 07/06/24 07/06/24 History tablet Headache Allergies Allergy/AdvReac Type Severity Reaction Status Date / Time No Known Allergies Allergy Verified 07/06/24 23:24 Past Med/Surg History Problem List (Updated 07/06/24 @ 23:28 by Piedad Pandya PA-C) Chest pain (Acute) History of cholecystectomy History of appendectomy COVID-19 (Acute) Myocardial infarction Acute bronchitis (Acute) Bronchitis (Acute) Hematuria (Acute) Hematuria (Acute) Left knee injury (Acute) Sore throat (Acute) Medical History Acute bronchitis Bronchitis Diabetes Hypertension Hypothyroidism Myocardial infarction Sore throat Surgical History History of appendectomy History of cholecystectomy Social History Smoking Status: Current every day smoker Tobacco Type: Cigarettes Preferred Language: Vietnamese Feels Safe at Home: Yes Review of Systems A total of 10 systems reviewed and were otherwise negative Physical Exam Vital Signs Vital Signs - 24 hr 07/06/24 21:40 07/06/24 21:48 07/06/24 21:55 Temperature 37.0 C Temperature Source Oral Pulse Rate 90 82 Pulse Rate [Apical] Pulse Rhythm Regular Pulse Rhythm [Apical] Pulse Strength Normal Pulse Strength [Apical] Respiratory Rate 17 Respiratory Effort / Characteristics Non-Labored Spontaneous Respiratory Depth Normal Respiratory Pattern Regular Blood Pressure 144/101 H Blood Pressure [Right Arm] Blood Pressure Mean 115 Blood Pressure Mean [Right Arm] Blood Pressure Position Sitting Blood Pressure Position [Right Arm] Pulse Oximetry 95 Oxygen Delivery Method Room Air Room Air Sepsis Recent Fever Within 48 Hours No Sepsis New/Unexplained Change in Mental Status No Sepsis Action Taken by Nursing No Action Required 07/06/24 23:31 07/06/24 23:32 Temperature Temperature Source Pulse Rate Pulse Rate [Apical] 74 Pulse Rhythm Pulse Rhythm [Apical] Regular Pulse Strength Pulse Strength [Apical] Normal Respiratory Rate 18 Respiratory Effort / Characteristics Non-Labored Respiratory Depth Normal Respiratory Pattern Regular Blood Pressure Blood Pressure [Right Arm] 121/71 Blood Pressure Mean Blood Pressure Mean [Right Arm] 87 Blood Pressure Position Blood Pressure Position [Right Arm] Sitting Pulse Oximetry 96 96 Oxygen Delivery Method Room Air Room Air Sepsis Recent Fever Within 48 Hours Sepsis New/Unexplained Change in Mental Status Sepsis Action Taken by Nursing VITALS: Vitals are noted on the nurse's note and reviewed by myself. Vital signs stable. GENERAL: Pleasant gentleman, in no acute distress, nondiaphoretic, well- developed well-nourished. SKIN: Capillary reflex less than 2 seconds. HEENT: Normocephalic. PERRLA. EOMI. Nares patent. Mucous membranes moist. Neck is supple without nuchal rigidity. HEART: Regular rate and rhythm LUNGS: Clear to auscultation bilaterally without wheezes, rales or rhonchi. No retractions or accessory muscle use. ABDOMEN: Positive bowel sounds x 4. Normal tympanic percussion. Soft, nontender, without masses or organomegaly. Saenz sign negative. No guarding or rebound tenderness. no CVA tenderness MUSCULOSKELETAL: No gross musculoskeletal defects. NEURO: Patient was alert and oriented to person place and time. No focal neurological deficits. Medical Decision Making Medical Records Attestation: I reviewed the patient's medical records. Home Medications Current Medication List: was personally reviewed by me Laboratory Data Attestation: I reviewed the patient's lab results. 07/06/24 21:47 07/06/24 21:47 Lab Results 07/06/24 Range/Units 21:47 WBC 9.94 (4.8-10.8) K/ul RBC 4.85 (4.70-6.10) M/uL Hgb 15.1 (14.0-18.0) g/dl Hct 44.8 (42.0-52.0) % MCV 92.4 (80.0-100.0) fL MCH 31.1 (25.0-34.0) pg MCHC 33.7 (32.0-36.0) g/dL RDW Std Deviation 43.5 (36.4-46.3) fL RDW Coeff of Luther 12.8 (11.5-14.5) % Plt Count 290 (130-400) K/uL MPV 9.1 L (9.4-12.4) fL Immature Gran % (Auto) 0.4 % Neut % (Auto) 55.8 % Lymph % (Auto) 29.5 % Jennings % (Auto) 9.5 % Eos % (Auto) 4.1 % Baso % (Auto) 0.7 % Neut # (Auto) 5.55 (1.40-6.50) K/uL Lymph # (Auto) 2.93 (1.20-3.40) K/uL Jennings # (Auto) 0.94 H (0.11-0.59) K/uL Eos # (Auto) 0.41 (0.00-0.50) K/uL Baso # (Auto) 0.07 (0.00-0.20) K/uL Immature Gran # (Auto) 0.04 (0.01-0.20) K/uL PT 10.8 (9.0-12.0) Seconds INR 1.0 (0.9-1.1) Sodium 138 (136-145) mmol/L Potassium 4.1 (3.5-5.1) mmol/L Chloride 106 (98-107) mmol/L Carbon Dioxide 27 (21-32) mmol/L Anion Gap 5 (3-11) BUN 11 (6-23) mg/dl Creatinine 1.25 (0.6-1.4) mg/dl Est Cr Clr Drug Dosing 62.3 ml/min eGFR 65.51 BUN/Creatinine Ratio 8.8 L (10-20) Glucose 126 H (70-99(Fasting)) mg/dl Calcium 9.1 (8.6-10.3) mg/dl Magnesium 1.8 (1.7-2.4) mg/dl Total Bilirubin 0.5 (0.2-1.0) mg/dl AST 18 (13-39) U/L ALT 22 (7-52) U/L Alkaline Phosphatase 61 (34-104) U/L Troponin I High Sens 3.8 (0-20) pg/ml Total Protein 7.3 (6.0-8.3) gm/dl Albumin 4.3 (3.4-5.0) gm/dl Globulin 3.0 (2.5-4.0) gm/dl Albumin/Globulin Ratio 1.4 (0.9-2) Lipase 53 (11-82) U/L Imaging Data Attestation: I personally reviewed and interpreted this imaging study as follows: Radiologist's Impression: Chest X-Ray 07/06/24 21:48 Exam(s): XR CXR 1 VIEW EXAM: XR Chest, 1 View CLINICAL HISTORY: Reason for exam: Chest pain, nonspecific. TECHNIQUE: Frontal view of the chest. COMPARISON: 04/26/2024 FINDINGS: Lungs: No consolidation. No overt edema. Pleural space: No pleural effusion. No pneumothorax. Heart: Unremarkable. No cardiomegaly. IMPRESSION: No acute cardiopulmonary abnormality. Electronically signed by: Yury Calvo MD 07/06/24 23:36 PM MDM Narrative Prior records/ancillary studies reviewed. Triage Nursing notes reviewed. Additional history obtained from family. The patient's history was concerning for chest pain. Differential diagnosis: Etiologies such as cardiac ischemia, aortic dissection, pulmonary embolism, pneumonia, pneumothorax, musculoskeletal, infections, pericarditis, myocarditis, esophageal rupture, gastrointestinal, as well as others were entertained. Physical examination: As above. ER treatment provided: An order was placed for continuous cardiac monitoring. The monitor shows a rate of 60-100 with a sinus rhythm per my interpretation. Aspirin was ordered On reassessment the patient felt better. Diagnostic interpretation by me: The electrocardiogram was negative for pathologic change. Ordered for chest pain EKG: Normal sinus, normal intervals, no acute ST-T wave changes. Impression normal sinus rhythm independently interpreted by myself I think arrhythmia is unlikely. EKG shows normal sinus rhythm with no interval abnormalities such as QT prolongation or WPW. There are no findings to suggest Brugada syndrome. Cardiac monitoring in the emergency department reveals no tachycardic or bradycardic dysrhythmia. Hypertrophic cardiomyopathy was considered but there are no clear historical elements pointing toward this. EKG is not suggestive. The QRS voltage is not extremely large and there are no suggestive Q waves. The labs Independently Interpreted by myself revealed negative troponin. No worrisome leukocytosis Imaging studies: Chest x-ray with no acute consolidation, pneumothorax or free air per my independent interpretation HEART SCORE: Hx: high/mod/low suspicion: 1 ECG: ST depression/nonspecific changes/normal: 0 Age: Greater than 65/45-64/less than 45: 1 Risk factors: (Hypertension, hyperlipidemia, diabetes, coronary disease, tobacco use, cocaine use): 2 Troponin: Greater than 2 times normal limits/1-2 times normal limits/normal: 0 Total: 4 Consultation: A consultation was placed with the hospitalist. The case was discussed and diagnostics were reviewed. The patient was evaluated in the ER for further treatment. Exam and history seem consistent with chest pain with concerns for cardiac in etiology. First troponin is negative. Repeat was ordered. First EKG is nonischemic. His symptoms felt similar to his prior heart attack. Medicine was consulted case discussed. He will be evaluated for possible admission. By the evaluation outlined above emergent etiologies such as aortic dissection, pulmonary embolism, pneumonia, pneumothorax, infections, pericarditis, myocarditis, gastrointestinal, as well as others were deemed relatively unlikely. The pt informed about the findings as listed above. All questions were answered and pleased with the treatment. The chart was completed utilizing [employer] Speech voice recognition software. Grammatical errors, random word insertions, pronoun errors, and incomplete sentences are an occassional consequence of this system due to software limitations, ambient noise, and hardware issues. Any formal questions or concerns about the content, text, or information contained within the body of this dictation should be directly addressed to the physician licensed occupational therapy assistant for clarification. 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 rosuvastatin [Crestor] 40 mg tablet 40 mg PO QAM trazodone 50 mg tablet 50 mg PO HS famotidine 40 mg tablet 40 mg PO HS PRN (Reason: Heartburn) omeprazole 20 mg capsule,delayed release(DR/EC) 20 mg PO BID escitalopram oxalate 10 mg tablet 15 mg PO QAM aspirin 81 mg Tablet,Delayed Release (Dr/Ec) 81 mg PO QAM mecobalamin (vitamin B12) 1,000 mcg tablet,disintegrating 1,000 mcg sublingual QAM topiramate 100 mg tablet 100 mg PO BID tamsulosin [Flomax] 0.4 mg capsule 0.4 mg PO QAM riboflavin (vitamin B2) [Vitamin B-2] 100 mg Tablet 400 mg PO DAILY glipizide 5 mg Tablet Extended Release 24hr 5 mg PO DAILYBB rizatriptan 10 mg Tablet,Disintegrating 10 mg PO DIRECTED PRN (Reason: Migraine Headache) Rx Instructions: take 1 tab at onset of headache; if no relief may repeat 1 tab after at least 2 hrs; max = 3 tabs/24 hr pindolol 5 mg Tablet 5 mg PO BID magnesium oxide 400 mg magnesium Tablet 400 mg PO HS Referrals Referrals: Mariaa Paige PA-C [Primary Care Provider] - Discharge Problem: Chest pain Qualifiers: Chest pain type: unspecified Qualified Code(s): R07.9 - Chest pain, unspecified
--- NOTE | 2024-07-06 23:37 | XRay Report ---
Exam(s): XR CXR 1 VIEW EXAM: XR Chest, 1 View CLINICAL HISTORY: Reason for exam: Chest pain, nonspecific. TECHNIQUE: Frontal view of the chest. COMPARISON: 04/26/2024 FINDINGS: Lungs: No consolidation. No overt edema. Pleural space: No pleural effusion. No pneumothorax. Heart: Unremarkable. No cardiomegaly. IMPRESSION: No acute cardiopulmonary abnormality. Electronically signed by: Yury Calvo MD 07/06/24 23:36 PM
[2024-07-07] MEDS: ASPIRIN CHEW 324 MG PO STA (00:33)
--- NOTE | 2024-07-07 04:04 | History & Physical Report ---
Date of Service July 07, 2024 Assessment & Plan (1) Chest pain: Plan: 59-year-old male with past medical history significant for type 2 diabetes, hypothyroidism, hyperlipidemia, COPD, history of CAD status post stent, hypertension, nonalcoholic fatty liver, BPH, tobacco use disorder, depression, presents with chest pain. Patient was out working when he noticed pain in the middle of the chest 7 /10 in severity. And also since last one week ,on and off he is having some numbness in his left upper arm. Currently pain is minimal. Sometimes with exertion he gets short of breath and attributes it to be not been in shape. Has smoker's cough. No fevers. No headache. No dizziness. No runny nose or sore throat. No nausea. No abdominal pain. Normal bowel and bladder movements. Currently resting comfortably and hemodynamics stable. Chest pain Seems on exertion 2 sets of troponin negative EKG unremarkable Will keep him n.p.o. Serial cardiac enzymes and echocardiogram and repeat EKG Observe in med/telemetry Cardial consult in a.m. for further recommendation History of CAD Status post RCA stenting 2002 On aspirin, pindolol, and Crestor Hyperlipidemia On statin Diabetes Hold glipizide Sliding scale Will monitor BPH On Flomax and Proscar Hypertension On pindolol and lisinopril Will monitor Depression Lexapro DVT prophylaxis SCDs Observation med/telemetry Full code History of Present Illness Chief Complaint: Chest pain Primary Care Provider: Mariaa Paige PA-C 59-year-old male with past medical history significant for type 2 diabetes, hypothyroidism, hyperlipidemia, COPD, history of CAD status post stent, hypertension, nonalcoholic fatty liver, BPH, tobacco use disorder, depression, presents with chest pain. Patient was out working when he noticed pain in the middle of the chest 7 /10 in severity. And also since last one week ,on and off he is having some numbness in his left upper arm. Currently pain is minimal. Sometimes with exertion he gets short of breath and attributes it to be not been in shape. Has smoker's cough. No fevers. No headache. No dizziness. No runny nose or sore throat. No nausea. No abdominal pain. Normal bowel and bladder movements. Currently resting comfortably and hemodynamics stable. Past medical history. As mentioned above Past surgical history. Colonoscopy. Cardiac cath with RCA stent in 2002. Cystoscopy EGD. Laparoscopic cholecystectomy. Laparoscopic inguinal hernia repair. Appendectomy. Social history. . Smokes 1.5 pack a day for 36 years. No alcohol use. No drug use. Family history. Daughter had colon cancer. Mother had diabetes. Heart disorder. Hypertension. Father had liver disease. Allergies Allergy/AdvReac Type Severity Reaction Status Date / Time No Known Allergies Allergy Verified 07/06/24 23:24 Home Medications Medication Instructions Recorded Confirmed Type finasteride 5 mg tablet (Proscar) 5 mg PO QAM 07/02/18 07/06/24 History levothyroxine 100 mcg tablet 100 mcg PO DAILYBB 07/02/18 07/06/24 History (Synthroid) lisinopril 10 mg tablet (Zestril) 10 mg PO QAM 07/02/18 07/06/24 History rosuvastatin 40 mg tablet (Crestor) 40 mg PO QAM 07/02/18 07/06/24 History aspirin 81 mg tablet,delayed 81 mg PO QAM 12/05/20 07/06/24 History release famotidine 40 mg tablet 40 mg PO HS PRN Heartburn 12/26/21 07/06/24 History trazodone 50 mg tablet 50 mg PO HS 12/26/21 07/06/24 History escitalopram oxalate 10 mg tablet 15 mg PO QAM 02/14/23 07/06/24 History omeprazole 20 mg capsule,delayed 20 mg PO BID 02/14/23 07/06/24 History release mecobalamin (vitamin B12) 1,000 1,000 mcg sublingual QAM 07/01/23 07/06/24 History mcg disintegrating tablet,sublingual tamsulosin 0.4 mg capsule (Flomax) 0.4 mg PO QAM 07/01/23 07/06/24 History topiramate 100 mg tablet 100 mg PO BID 07/01/23 07/06/24 History glipizide 5 mg tablet, extended 5 mg PO DAILYBB 07/06/24 07/06/24 History release 24 hr magnesium oxide 400 mg PO HS 07/06/24 07/06/24 History pindolol 5 mg tablet 5 mg PO BID 07/06/24 07/06/24 History riboflavin (vitamin B2) 100 mg 400 mg PO DAILY 07/06/24 07/06/24 History tablet (Vitamin B-2) rizatriptan 10 mg disintegrating 10 mg PO DIRECTED PRN Migraine 07/06/24 07/06/24 History tablet Headache Past Med/Surg History Problem List (Updated 07/06/24 @ 23:28 by iPedad Pandya PA-C) Chest pain (Acute) History of cholecystectomy History of appendectomy COVID-19 (Acute) Myocardial infarction Acute bronchitis (Acute) Bronchitis (Acute) Hematuria (Acute) Hematuria (Acute) Left knee injury (Acute) Sore throat (Acute) Medical History Acute bronchitis Bronchitis Diabetes Hypertension Hypothyroidism Myocardial infarction Sore throat Surgical History History of appendectomy History of cholecystectomy Social History Smoking Status: Current every day smoker Tobacco Type: Cigarettes Cigarettes Per Day: 1 pack; Hx Alcohol Use: No Hx Substance Use: No Preferred Language: Italian Suture Polisher Required: No Beliefs That Will Affect Care: None Current Living Situation: Spouse Feels Safe at Home: Yes Safety Concerns: Feels Safe At This Time Assistive Devices: Contacts Review of Systems Review of Systems: All systems reviewed & are unremarkable except as noted in HPI & below Physical Exam Physical Exam: General- Not in distress Head- atraumatic Eyes- PERRL. ENT- oropharynx clear Neck- supple, no JVD. Lungs- clear to auscultation no wheezing or crackles Heart- regular rhythm; no murmur, no gallop. Abdomen- normal bowel sounds, soft, nontender, no distension Extremities- no pretibial edema, no erythema seen Neuro- alert, oriented PERRL, no facial palsy; no dysarthria; moves extremities Results & Data Results & Data Vital Signs (Past 12 Hours) Vital Signs Temp Pulse Pulse Resp BP BP Pulse Ox 07/07/24 01:44 78 07/06/24 23:32 96 07/06/24 23:31 74 18 121/71 96 07/06/24 21:55 82 07/06/24 21:48 07/06/24 21:40 37.0 C 90 17 144/101 H 95 O2 Del Method 07/07/24 01:44 07/06/24 23:32 Room Air 07/06/24 23:31 Room Air 07/06/24 21:55 07/06/24 21:48 Room Air 07/06/24 21:40 Room Air Diagnostic Findings Laboratory Results WBC 9.94 K/ul (4.8-10.8) 07/06/24 21:47 RBC 4.85 M/uL (4.70-6.10) 07/06/24 21:47 Hgb 15.1 g/dl (14.0-18.0) 07/06/24 21:47 Hct 44.8 % (42.0-52.0) 07/06/24 21:47 MCV 92.4 fL (80.0-100.0) 07/06/24 21:47 MCH 31.1 pg (25.0-34.0) 07/06/24 21:47 MCHC 33.7 g/dL (32.0-36.0) 07/06/24 21:47 RDW Std Deviation 43.5 fL (36.4-46.3) 07/06/24 21:47 RDW Coeff of Luther 12.8 % (11.5-14.5) 07/06/24 21:47 Plt Count 290 K/uL (130-400) 07/06/24 21:47 MPV 9.1 fL (9.4-12.4) L 07/06/24 21:47 Immature Gran % (Auto) 0.4 % 07/06/24 21:47 Neut % (Auto) 55.8 % 07/06/24 21:47 Lymph % (Auto) 29.5 % 07/06/24 21:47 [place] % (Auto) 9.5 % 07/06/24 21:47 Eos % (Auto) 4.1 % 07/06/24 21:47 Baso % (Auto) 0.7 % 07/06/24 21:47 Neut # (Auto) 5.55 K/uL (1.40-6.50) 07/06/24 21:47 Lymph # (Auto) 2.93 K/uL (1.20-3.40) 07/06/24 21:47 [place] # (Auto) 0.94 K/uL (0.11-0.59) H 07/06/24 21:47 Eos # (Auto) 0.41 K/uL (0.00-0.50) 07/06/24 21:47 Baso # (Auto) 0.07 K/uL (0.00-0.20) 07/06/24 21:47 Immature Gran # (Auto) 0.04 K/uL (0.01-0.20) 07/06/24 21:47 PT 10.8 Seconds (9.0-12.0) 07/06/24 21:47 INR 1.0 (0.9-1.1) 07/06/24 21:47 Sodium 138 mmol/L (136-145) 07/06/24 21:47 Potassium 4.1 mmol/L (3.5-5.1) 07/06/24 21:47 Chloride 106 mmol/L (98-107) 07/06/24 21:47 Carbon Dioxide 27 mmol/L (21-32) 07/06/24 21:47 Anion Gap 5 (3-11) 07/06/24 21:47 BUN 11 mg/dl (6-23) 07/06/24 21:47 Creatinine 1.25 mg/dl (0.6-1.4) 07/06/24 21:47 Est Cr Clr Drug Dosing 62.3 ml/min 07/06/24 21:47 eGFR 65.51 07/06/24 21:47 BUN/Creatinine Ratio 8.8 (10-20) L 07/06/24 21:47 Glucose 126 mg/dl (70-99(Fasting)) H 07/06/24 21:47 Calcium 9.1 mg/dl (8.6-10.3) 07/06/24 21:47 Magnesium 1.8 mg/dl (1.7-2.4) 07/06/24 21:47 Total Bilirubin 0.5 mg/dl (0.2-1.0) 07/06/24 21:47 AST 18 U/L (13-39) 07/06/24 21:47 ALT 22 U/L (7-52) 07/06/24 21:47 Alkaline Phosphatase 61 U/L (34-104) 07/06/24 21:47 Troponin I High Sens 5.8 pg/ml (0-20) 07/07/24 00:12 Total Protein 7.3 gm/dl (6.0-8.3) 07/06/24 21:47 Albumin 4.3 gm/dl (3.4-5.0) 07/06/24 21:47 Globulin 3.0 gm/dl (2.5-4.0) 07/06/24 21:47 Albumin/Globulin Ratio 1.4 (0.9-2) 07/06/24 21:47 Lipase 53 U/L (11-82) 07/06/24 21:47 Impressions Chest X-Ray 07/06/24 21:48 Exam(s): XR CXR 1 VIEW EXAM: XR Chest, 1 View CLINICAL HISTORY: Reason for exam: Chest pain, nonspecific. TECHNIQUE: Frontal view of the chest. COMPARISON: 04/26/2024 FINDINGS: Lungs: No consolidation. No overt edema. Pleural space: No pleural effusion. No pneumothorax. Heart: Unremarkable. No cardiomegaly. IMPRESSION: No acute cardiopulmonary abnormality. Electronically signed by: Yury Calvo MD 07/06/24 23:36 PM ECG Additional Comments: ECG. Normal sinus rhythm rate of 82. No significant change was found. Code Status & VTE Plan VTE Prophylaxis Plan VTE Prophylaxis will be ordered: Yes (1) Chest pain Chest pain type: unspecified Qualified Code(s): R07.9 - Chest pain, unspecified
[2024-07-07] MEDS ORDERED: ACETAMINOPHEN 325 MG TAB PO PRN (04:57)
[2024-07-07] MEDS ORDERED: GLUCOSE 40% GEL 15 GM TUBE PO PRN (04:57)
[2024-07-07] MEDS ORDERED: GLUCAGON FOR INJ 1 MG VIAL SQ PRN (04:57)
[2024-07-07] MEDS ORDERED: NITROGLYCERIN SL 0.4 MG/TAB TAB SL PRN (04:57)
[2024-07-07] MEDS ORDERED: DEXTROSE 50% 50 ML SYRINGE IV PRN (04:57)
[2024-07-07] MEDS ORDERED: GLUCOSE 10 TAB/TUBE PO PRN (04:57)
[2024-07-07] MEDS ORDERED: POLYETHYLENE (MIRALAX) 17 GM PACK PO PRN (04:57)
[2024-07-07] MEDS ORDERED: CARBOHYDRATES FOR HYPOGLYCEMIA PO PRN (04:57)
[2024-07-07 05:13] VITALS: RESP 16
[2024-07-07] MEDS: INSULIN ASPART PER UNIT CHARGE SC SCH ×2 (06:06→12:53)
[2024-07-07 06:09] LABS: Basophils # (auto) 0.08 K/uL (0.00-0.20); Basophils % (auto) 0.9 %; Eosinophils # (auto) 0.43 K/uL (0.00-0.50); Hemoglobin 14.8 g/dl (14.0-18.0); Immature Granulocytes # (auto) 0.04 K/uL (0.01-0.20); Immature Granulocytes % (auto) 0.5 %; Lymphocytes # (auto) 3.27 K/uL (1.20-3.40); Lymphocytes % (auto) 37.9 %; Mean Corpuscular Hemoglobin 31.5 pg (25.0-34.0); Mean Corpuscular Hgb Conc 34.4 g/dL (32.0-36.0); Mean Corpuscular Volume 91.5 fL (80.0-100.0); Mean Platelet Volume 9.2 fL (9.4-12.4); Monocytes # (auto) 0.95 K/uL (0.11-0.59); Neutrophils # (auto) 3.86 K/uL (1.40-6.50); Neutrophils % (auto) 44.7 %; Platelet Count 261 K/uL (130-400); RDW Coefficient of Variation 12.7 % (11.5-14.5); RDW Standard Deviation 42.6 fL (36.4-46.3); White Blood Count 8.63 K/ul (4.8-10.8)
[2024-07-07] MEDS: LEVOTHYROXINE SODIUM 100 MCG TABLET PO SCH (06:12)
[2024-07-07 06:26] LABS: Anion Gap 5 (3-11); BUN Creatinine Ratio 13.5 (10-20); Blood Urea Nitrogen 15 mg/dl (6-23); Calcium 8.8 mg/dl (8.6-10.3); Carbon Dioxide 28 mmol/L (21-32); Chloride 105 mmol/L (98-107); Creatinine Clr Calc Pharmacy 71.3 ml/min; Glucose 102 mg/dl (70-99(Fasting)); Potassium 3.9 mmol/L (3.5-5.1); Sodium 138 mmol/L (136-145)
[2024-07-07 06:33] LABS: Troponin I High Sensitivity < 2.3 pg/ml (0-20)
[2024-07-07 07:48] VITALS: PULSE 59; TEMP 97.7; O2SAT 95
[2024-07-07 08:07] LABS: Estimated Average Glucose 131 mg/dl; Hemoglobin A1C 6.2 % (4.5-5.6)
--- NOTE | 2024-07-07 08:40 | Electrocardiogram Report ---
Test Reason : Blood Pressure : */* mmHG Vent. Rate : 82 BPM Atrial Rate : 82 BPM P-R Int : 142 ms QRS Dur : 90 ms QT Int : 366 ms P-R-T Axes : 80 74 53 degrees QTcB Int : 427 ms Normal sinus rhythm Normal ECG When compared with ECG of 25-Apr-2024 23:57, No significant change was found Confirmed by Jose Maria Welch ([id number]) on 07/07/2024 8:39:34 AM Referred By: REFERRED SELF Confirmed By: Jose Maria Welch
--- NOTE | 2024-07-07 08:44 | Cardiology Consultation ---
Date of Consultation July 07, 2024 Assessment & Plan (1) Chest pain: (2) History of coronary artery disease: Plan Patient is a 59 year old male with history of CAD, admitted after an episode of substernal/epigastric pain yesterday after working in the yard, lasting approx 20 minutes with possible radiation to left arm. History of CAD per cath in 2002 receiving KIM to the RCA and other non obstructive disease noted in the LAD and left circumflex managed medically. Last outpatient stress echo in 2021 which was negative for inducible ischemia Negative HS troponin x3 since admission EKG x2 demonstrating NSR without acute ischemic changes. No current CP symptoms. Options discussed, recommend proceeding with ischemic work up given his history and symptoms yesterday of possible angina. Patient reports he has been having orthopedic knee issues and back pain. He does not feel he would adequately ambulate on a treadmill for an exercis stress echo, therefore a dobutamine stress echo has been requested. Patient is NPO this morning. BP is controlled on current therapies. Smoking cessation strongly encouraged. Continue ASA, statin, lisinopril, beta aaron (held this morning). Further recommendations pending results of DSE and evaluation with Dr. Bill. I spent a total of 60 minutes on the date of service in preparation, delivery, and documentation of the care provided to this patient, excluding any time spent in the performance of separately billed services. Yvonne Clark PA-C Department of Cardiology, [facility] This chart was completed in part utilizing Speech Voice Recognition Software. Grammatical errors, random word insertions, pronoun errors, and incomplete sentences are an occasional consequence of this system due to software limitations, ambient noise, and hardware issues. Any formal questions or concerns about the content, text, or information contained within the body of this dictation should be directly addressed to the provider for clarification. Supervising Physician Co-Signing Physician Notes I have personally evaluated the patient. I have reviewed the advance practitioner's documentation, and I agree with, and take responsibility for the plan of care. 59-year-old male admitted with isolated episode of epigastric/substernal discomfort after working in his yard. Discomfort lasted proximately 20 minutes. Remote history of RCA stenting 2002. Pain-free since admission. No ischemic ECG changes. High-sensitivity troponin undetectable. Recommend dobutamine stress echo for further evaluation. Patient agreeable. Addendum: Dobutamine stress echo negative for inducible ischemia. No further inpatient cardiac testing or intervention recommended at this time. Recommend routine outpatient cardiology follow-up in 6 months. I spent a total of 25 minutes on the date of service in preparation, delivery, and documentation of the care provided to this patient, excluding any time spent in the performance of separately billed services. Arturo Bill DO, [facility] History of Present Illness Reason for Consultation: Chest pain Requesting Physician: [facility] Attending Physician: Dr. Bill History of Present Illness Patient is a 59 year old male who presented to [facility] with complaints of chest pain. Known to [facility] cardiology, with last visit in October 2021. Former [facility] patient. Lost to f/u in the interim. History includes: 1. Coronary artery disease status post PCI to the RCA in 2002 with residual nonobstructive disease of the LAD and circumflex. Last stress echo in Dec 2021 which was negative for inducible ischemia, normal LVEF and no valvular disease, achieving 7:30 seconds on Jf protocol 2. Tobacco abuse. 3. Femoral hematoma after cardiac catheterization. 4. Diabetes. 5. Hypothyroidism. 6. Dyslipidemia. 7. Hypertension. Patient states he was working in his yard yesterday afternoon when he developed substernal/epigastric pain. He felt hot/sweaty but attributes this to working out in the heat. He began to notice a strange feeling in his left arm described as a numbness/tingling sensation that radiated to his fingers. Due to his symptoms, he came to the emergency room for evaluation. Symptoms lasted about 20 minutes. He did not try any sublingual nitro at home to alleviate his symptoms. Upon admission, his symptoms had resolved. EKGx2 demonstrating NSR without acute ischemic changes. HS troponin Negative x 3. Chest x-ray was clear. He notes ongoing cough and intermittent wheezing but this is not new. He continues to smoke on a daily basis. Stable dyspnea with exertion reported. No worsening symptoms. Earlier this morning he noted mild recurrent epigastric/chest pain only lasting a few minutes at rest. Now resolved. He denies recent exertional symptoms leading up to yesterday's event. He does not formally exercise but he works at [employer] where he walks long distances every day without recent symptoms. At time of consult, patient resting in bed comfortably. No current chest pain or unusual shortness of breath. No left arm pain or tingling. No fever, chills. No orthopnea, PND, lower extremity edema. No palpitations, dizziness, lightheadedness, syncope or near syncope. Allergies Allergy/AdvReac Type Severity Reaction Status Date / Time No Known Allergies Allergy Verified 07/06/24 23:24 Home Medications Medication Instructions Recorded Confirmed Type finasteride 5 mg tablet (Proscar) 5 mg PO QAM 07/02/18 07/06/24 History levothyroxine 100 mcg tablet 100 mcg PO DAILYBB 07/02/18 07/06/24 History (Synthroid) lisinopril 10 mg tablet (Zestril) 10 mg PO QAM 07/02/18 07/06/24 History rosuvastatin 40 mg tablet (Crestor) 40 mg PO QAM 07/02/18 07/06/24 History aspirin 81 mg tablet,delayed 81 mg PO QAM 12/05/20 07/06/24 History release famotidine 40 mg tablet 40 mg PO HS PRN Heartburn 12/26/21 07/06/24 History trazodone 50 mg tablet 50 mg PO HS 12/26/21 07/06/24 History escitalopram oxalate 10 mg tablet 15 mg PO QAM 02/14/23 07/06/24 History omeprazole 20 mg capsule,delayed 20 mg PO BID 02/14/23 07/06/24 History release mecobalamin (vitamin B12) 1,000 1,000 mcg sublingual QAM 07/01/23 07/06/24 History mcg disintegrating tablet,sublingual tamsulosin 0.4 mg capsule (Flomax) 0.4 mg PO QAM 07/01/23 07/06/24 History topiramate 100 mg tablet 100 mg PO BID 07/01/23 07/06/24 History glipizide 5 mg tablet, extended 5 mg PO DAILYBB 07/06/24 07/06/24 History release 24 hr magnesium oxide 400 mg PO HS 07/06/24 07/06/24 History pindolol 5 mg tablet 5 mg PO BID 07/06/24 07/06/24 History riboflavin (vitamin B2) 100 mg 400 mg PO DAILY 07/06/24 07/06/24 History tablet (Vitamin B-2) rizatriptan 10 mg disintegrating 10 mg PO DIRECTED PRN Migraine 07/06/24 07/06/24 History tablet Headache Patient History Medical History Acute bronchitis Bronchitis Diabetes Hypertension Hypothyroidism Myocardial infarction Sore throat Surgical History History of appendectomy History of cholecystectomy Social History Smoking Status: Current every day smoker Tobacco Type: Cigarettes Cigarettes Per Day: 1 pack; Hx Alcohol Use: No Hx Substance Use: No Preferred Language: Samoan House Mover Helper Required: No Beliefs That Will Affect Care: None Current Living Situation: Spouse Feels Safe at Home: Yes Safety Concerns: Feels Safe At This Time Assistive Devices: Contacts Review of Systems Review of Systems: All systems reviewed & are unremarkable except as noted in HPI & below Physical Exam Constitutional: WD/WN, vitals as above well developed; no acute distress Neck: trachea midline, no thyromegaly Respiratory: no labored breathing Auscultation: + diminished lung sounds and + wheezes (expiratory - diffuse) Cardiovascular: Rate/Rhythm: regular rate and regular rhythm Heart Sounds: normal S1 and normal S2; no murmur Vessels: no JVD Extremities: no edema Gastrointestinal (Abdomen): normal bowel sounds, soft, nontender, no hepatosplenomegaly Skin: no rashes, warm and dry Neurologic: PERRL, EOMI, accommodation nl, no face palsy, no dysarthria Psychiatric: A+Ox3, euthymic affect Results & Data Vital Signs (Past 12 Hours) Vital Signs Temp Pulse Pulse Resp BP BP BP 07/07/24 07:47 36.5 C 59 L 16 123/77 07/07/24 07:11 64 07/07/24 05:00 07/07/24 05:00 36.8 C 77 16 143/79 H 07/07/24 04:53 72 07/07/24 04:45 88 17 140/76 07/07/24 01:44 78 07/06/24 23:32 07/06/24 23:31 74 18 121/71 07/06/24 21:55 82 07/06/24 21:48 07/06/24 21:40 37.0 C 90 17 144/101 H Pulse Ox O2 Del Method 07/07/24 07:47 95 Room Air 07/07/24 07:11 07/07/24 05:00 Room Air 07/07/24 05:00 94 Room Air 07/07/24 04:53 07/07/24 04:45 96 Room Air 07/07/24 01:44 07/06/24 23:32 96 Room Air 07/06/24 23:31 96 Room Air 07/06/24 21:55 07/06/24 21:48 Room Air 07/06/24 21:40 95 Room Air Laboratory Results Cardiac Enzymes 07/06/24 07/07/24 07/07/24 Range/Units 21:47 00:12 05:44 AST 18 (13-39) U/L Troponin I High Sens 3.8 5.8 < 2.3 (0-20) pg/ml Coagulation 07/06/24 Range/Units 21:47 PT 10.8 (9.0-12.0) Seconds CBC 07/06/24 07/07/24 Range/Units 21:47 05:44 WBC 9.94 8.63 (4.8-10.8) K/ul RBC 4.85 4.70 (4.70-6.10) M/uL Hgb 15.1 14.8 (14.0-18.0) g/dl Hct 44.8 43.0 (42.0-52.0) % Plt Count 290 261 (130-400) K/uL Neut # (Auto) 5.55 3.86 (1.40-6.50) K/uL Lymph # (Auto) 2.93 3.27 (1.20-3.40) K/uL Gibson # (Auto) 0.94 H 0.95 H (0.11-0.59) K/uL Eos # (Auto) 0.41 0.43 (0.00-0.50) K/uL Baso # (Auto) 0.07 0.08 (0.00-0.20) K/uL Comprehensive Metabolic Panel 07/06/24 07/07/24 Range/Units 21:47 05:44 Sodium 138 138 (136-145) mmol/L Potassium 4.1 3.9 (3.5-5.1) mmol/L Chloride 106 105 (98-107) mmol/L Carbon Dioxide 27 28 (21-32) mmol/L BUN 11 15 (6-23) mg/dl Creatinine 1.25 1.11 (0.6-1.4) mg/dl Glucose 126 H 102 H (70-99(Fasting)) mg/dl Calcium 9.1 8.8 (8.6-10.3) mg/dl AST 18 (13-39) U/L ALT 22 (7-52) U/L Alkaline Phosphatase 61 (34-104) U/L Total Protein 7.3 (6.0-8.3) gm/dl Albumin 4.3 (3.4-5.0) gm/dl Intake and Output 07/06/24 07/07/24 07/07/24 22:59 06:59 14:59 Other: Other Intake Source ice chips Weight 81.7 kg 81.2 kg Weight Measurement Method Built in Bedscale Standing Scale Diagnostic Findings Telemetry reviewed: NSR, no arrhythmias. EKG reviewed form admission on 07/06 at 21:45: NSR, normal EKG No acute ischemic changes No change from EKG in Apr 2024 EKG reviewed from 07/07 at 5:35 AM NSR, Normal EKG No acute ischemic changes Chest X-Ray 07/06/24 21:48 IMPRESSION: No acute cardiopulmonary abnormality. Prior Data Reviewed: Exercise stress echo report reviewed from Dec 2023: Interpretation Summary The examination is adequate to evaluate the referral indication. The stress echo is negative for inducible ischemia. There is no significant valvular pathology on the resting study. Cardiac cath report reviewed from November 2002: 1. Coronary artery disease. 2. 90% right coronary artery obstruction treated with a drug-eluting stent. 3. Medical management for 40% left anterior descending coronary artery lesion and a 70% left circumflex coronary artery lesion. 4. Tobacco abuse. 5. Post catheterization hemorrhage, rectus sheath and possibly retroperitoneal as well. Medications Administered Current Inpatient Medications Acetaminophen (Acetaminophen 325 Mg Tab) 650 mg PO Q4H PRN PRN Reason: Pain or Fever Stop: 08/06/24 04:56 Aspirin ([facility]in 81 Mg Ectab) [facility]: 08/06/24 08:59 Cyanocobalamin (Cyanocobalamin (B-12) 500 Mcg Tablet) 1,[facility] [place] Stop: 08/06/24 08:59 Dextrose (Dextrose 50% 50 Ml Syringe) 25 - 50 ml IV UD PRN; Protocol PRN Reason: Hypoglycemia Protocol Stop: 08/06/24 04:56 Escitalopram Oxalate (Escitalopram Oxalate 10 Mg Tab) 15 mg PO QAM [facility] Stop: 08/06/24 08:59 Famotidine (Famotidine 40 Mg Tablet) 40 mg PO HS PRN PRN Reason: Heartburn Stop: 08/06/24 04:56 Finasteride (Finasteride 5 Mg Tab) 5 mg PO QAM [facility] Stop: 08/06/24 08:59 Glucagon (Glucagon For Inj 1 Mg Vial) 1 mg SQ UD PRN; Protocol PRN Reason: Hypoglycemia Protocol Stop: 08/06/24 04:56 Glucose (Glucose 40% Gel 15 Gm Tube) 15 - 30 gm PO UD PRN; Protocol PRN Reason: Hypoglycemia Protocol Stop: 08/06/24 04:56 Glucose (Glucose 10 Tab/Tube) 4 - 8 tab PO UD PRN; Protocol PRN Reason: Hypoglycemia Protocol Stop: 08/06/24 04:56 Insulin Aspart (Insulin Aspart Per Unit Charge) 0 units SC Q6 [facility] Stop: 08/06/24 05:59 Last Admin: 07/07/24 06:06 Dose: Not Given Levothyroxine Sodium (Levothyroxine Sodium 100 Mcg Tablet) 100 mcg PO DAILYBB [facility] Stop: 08/06/24 06:29 Last Admin: 07/07/24 06:12 Dose: 100 mcg Lisinopril (Lisinopril 10 Mg Tab) 10 mg PO QAM [facility] Stop: 08/06/24 08:59 Magnesium Oxide (Magnesium Oxide 400 Mg Tab) 400 mg PO HS [facility] Stop: 08/06/24 20:59 Miscellaneous (Pindolol 5 Mg - Order Awaiting Action) 1 each N/A QS [facility] Stop: 08/06/24 07:59 Miscellaneous (Carbohydrates For Hypoglycemia ) 15 - 30 gm PO UD PRN PRN Reason: Hypoglycemia Protocol Stop: 08/06/24 04:56 Nitroglycerin (Nitroglycerin Sl 0.4 Mg/Tab Tab) 0.4 mg SL Q5M PRN PRN Reason: Chest Pain Stop: 08/06/24 04:56 Pantoprazole Sodium (Pantoprazole 40 Mg Tab) 40 mg PO BID [facility] Stop: 08/06/24 08:59 Polyethylene Glycol (Polyethylene (Miralax) 17 Gm Pack) 17 gm PO DAILY PRN PRN Reason: Constipation Stop: 08/06/24 04:56 Rosuvastatin Calcium (Rosuvastatin Calcium 20 Mg Tab) 40 mg PO QAM [facility] Stop: 08/06/24 08:59 Tamsulosin HCl (Tamsulosin Hcl 0.4 Mg Cap) 0.4 mg PO QAM [facility] Stop: 08/06/24 08:59 Topiramate (Topiramate 100 Mg Tab) 100 mg PO BID [facility] Stop: 08/06/24 08:59 Trazodone HCl (Trazodone Hcl 50 Mg Tab) 50 mg PO HS [facility] Stop: 08/06/24 20:59 (1) Chest pain Chest pain type: unspecified Qualified Code(s): R07.9 - Chest pain, unspecified
--- NOTE | 2024-07-07 08:48 | Electrocardiogram Report ---
Test Reason : Blood Pressure : */* mmHG Vent. Rate : 63 BPM Atrial Rate : 63 BPM P-R Int : 154 ms QRS Dur : 96 ms QT Int : 428 ms P-R-T Axes : 76 69 38 degrees QTcB Int : 437 ms Normal sinus rhythm Normal ECG When compared with ECG of 06-Jul-2024 21:45, No significant change was found Confirmed by Jose Maria Welch [id number]) on 07/07/2024 8:47:39 AM Referred By: REFERRED SELF Confirmed By: Jose Maria Welch
[2024-07-07] MEDS ORDERED: NON-FORMULARY MEDICATION (Riboflavin (Vitamin B2) [Vitamin B-2] 100 mg Tablet) PO SCH (09:00)
[2024-07-07] MEDS: TOPIRAMATE 100 MG TAB PO SCH (09:23)
[2024-07-07] MEDS: CYANOCOBALAMIN (B-12) 500 MCG TABLET PO SCH (09:23)
[2024-07-07] MEDS: ASPIRIN 81 MG ECTAB PO SCH (09:23)
[2024-07-07] MEDS: PANTOprazole 40 MG TAB PO SCH (09:24)
[2024-07-07] MEDS: lisinopril 10 MG TAB PO SCH (09:24)
[2024-07-07] MEDS: ESCITALOPRAM OXALATE 10 MG TAB PO SCH (09:24)
[2024-07-07] MEDS: ROSUVASTATIN CALCIUM 20 MG TAB PO SCH (09:24)
[2024-07-07] MEDS: FINASTERIDE 5 MG TAB PO SCH (09:24)
[2024-07-07] MEDS: TAMSULOSIN HCL 0.4 MG CAP PO SCH (09:24)
[2024-07-07] MEDS: FAMOTIDINE 40 MG TABLET PO PRN (09:24)
[2024-07-07] MEDS: ATROPINE SULFATE 0.1 MG/ML 10ML SYR IV ONE (11:34)
[2024-07-07] MEDS: DOBUTamine HCL 12.5 MG/ML 20 ML VIAL IV ONE (11:35)
[2024-07-07] MEDS: METOPROLOL TARTRATE 1 MG/ML VIAL IV ONE (11:36)
--- NOTE | 2024-07-07 11:45 | Hospitalist Progress Note ---
Date of Service July 07, 2024 Assessment & Plan (1) Chest pain: Plan: 59-year-old male with past medical history significant for type 2 diabetes, hypothyroidism, hyperlipidemia, COPD, history of CAD status post stent, hypertension, nonalcoholic fatty liver, BPH, tobacco use disorder, depression, presents with chest pain. Patient was out working when he noticed pain in the middle of the chest 7 /10 in severity. And also since last one week ,on and off he is having some numbness in his left upper arm. Currently pain is minimal. Sometimes with exertion he gets short of breath and attributes it to be not been in shape. Has smoker's cough. No fevers. No headache. No dizziness. No runny nose or sore throat. No nausea. No abdominal pain. Normal bowel and bladder movements. Currently resting comfortably and hemodynamics stable. Chest pain Lower central/precordial chest pain with exertion while doing yard work and lasted for 20 minutes The pain radiated to the left arm but did not have any sweating, nausea vomiting or dizziness associated with it He is free from any pain as of this morning His EKG and serial troponins have been unremarkable Appreciate cardiology input and recommendation for DSE Await DSA results for further recommendation Resting echo today showed LV systolic function is normal with EF 55 to 60%, LV wall motion is normal, pulse-wave TDI of the anterior and posterior mitral annulus demonstrates normal LV relaxation and no significant valvular pathology Stress echo showed normal pharmacological stress echocardiogram. No echocardiographic or ECG evidence of myocardial ischemia having achieved heart rate adequate for diagnostic purposes The patient will be discharged home this afternoon History of CAD Status post RCA stenting 2002 On aspirin, pindolol, and Crestor Will continue all of his medications Hyperlipidemia On statin Diabetes Hold glipizide Sliding scale Hemoglobin A1c is 6.2 Blood sugar in the hospital is controlled BPH On Flomax and Proscar Hypertension On pindolol and lisinopril blood pressure is controlled as well Depression Lexapro DVT prophylaxis SCDs Observation med/telemetry Full code Admission and Anticipated Discharge Date Admission Date: July 07, 2024 Subjective 07/07/2024 The patient was seen and examined in medical telemetry unit He has been free from any chest pain and does not have any arrhythmias Will have dobutamine stress echo today Review of Systems Review of Systems: All systems reviewed and are unremarkable except as noted below Physical Exam Physical Exam: Lying in bed without any acute distress Constitutional: well developed and well nourished; not ill appearing Eyes: PERRL, conjunctivae normal, anicteric sclerae ENMT: external ear and nose normal, oropharynx normal Neck: trachea midline, no thyromegaly Respiratory: no respiratory distress Auscultation: lungs clear to auscultation bilaterally Cardiovascular: Rate/Rhythm: regular rate, regular rhythm and + bradycardic Heart Sounds: normal S1 and normal S2; no murmur Extremities: no edema Gastrointestinal (Abdomen): Inspection/Auscultation: normal bowel sounds; abdomen not distended Percussion/Palpation: abdomen soft; abdomen nontender Musculoskeletal: No acute arthritis involving any of the joint Neurologic: normal touch/pain/proprioception and moves all extremities; no focal motor deficits Psychiatric: A+Ox3, euthymic affect Lymphatic: no cervical or axillary lymphadenopathy Results & Data Results & Data Vital Signs (Past 12 Hours) Vital Signs Temp Pulse Pulse Resp BP BP Pulse Ox 07/07/24 10:59 07/07/24 07:47 36.5 C 59 L 16 123/77 95 07/07/24 07:11 64 07/07/24 05:00 07/07/24 05:00 36.8 C 77 16 143/79 H 94 07/07/24 04:53 72 07/07/24 04:45 88 17 140/76 96 07/07/24 01:44 78 O2 Del Method 07/07/24 10:59 Room Air 07/07/24 07:47 Room Air 07/07/24 07:11 07/07/24 05:00 Room Air 07/07/24 05:00 Room Air 07/07/24 04:53 07/07/24 04:45 Room Air 07/07/24 01:44 Laboratory Results Short CBC 07/06/24 07/07/24 Range/Units 21:47 05:44 WBC 9.94 8.63 (4.8-10.8) K/ul Hgb 15.1 14.8 (14.0-18.0) g/dl Hct 44.8 43.0 (42.0-52.0) % Plt Count 290 261 (130-400) K/uL BMP 07/06/24 07/07/24 21:47 05:44 Sodium 138 138 Potassium 4.1 3.9 Chloride 106 105 Carbon Dioxide 27 28 BUN 11 15 Creatinine 1.25 1.11 Glucose 126 H 102 H Calcium 9.1 8.8 Liver Function 07/06/24 Range/Units 21:47 Total Bilirubin 0.5 (0.2-1.0) mg/dl AST 18 (13-39) U/L ALT 22 (7-52) U/L Alkaline Phosphatase 61 (34-104) U/L Albumin 4.3 (3.4-5.0) gm/dl Medications Administered Current Inpatient Medications Acetaminophen (Acetaminophen 325 Mg Tab) 650 mg PO Q4H PRN PRN Reason: Pain or Fever Stop: 08/06/24 04:56 Aspirin (Aspirin 81 Mg Ectab) 81 mg PO [facility] Stop: 08/06/24 08:59 Last Admin: 07/07/24 09:23 Dose: 81 mg Cyanocobalamin (Cyanocobalamin (B-12) 500 Mcg Tablet) 1,000 mcg PO [facility] Stop: 08/06/24 08:59 Last Admin: 07/07/24 09:23 Dose: 1,000 mcg Dextrose (Dextrose 50% 50 Ml Syringe) 25 - 50 ml IV UD PRN; Protocol PRN Reason: Hypoglycemia Protocol Stop: 08/06/24 04:56 Escitalopram Oxalate (Escitalopram Oxalate 10 Mg Tab) 15 mg PO [facility] Stop: 08/06/24 08:59 Last Admin: 07/07/24 09:24 Dose: 15 mg Famotidine (Famotidine 40 Mg Tablet) 40 mg PO HS PRN PRN Reason: Heartburn Stop: 08/06/24 04:56 Last Admin: 07/07/24 09:24 Dose: 40 mg Finasteride (Finasteride 5 Mg Tab) 5 mg PO [facility] Stop: 08/06/24 08:59 Last Admin: 07/07/24 09:24 Dose: 5 mg Glucagon (Glucagon For Inj 1 Mg Vial) 1 mg SQ UD PRN; Protocol PRN Reason: Hypoglycemia Protocol Stop: 08/06/24 04:56 Glucose (Glucose 40% Gel 15 Gm Tube) 15 - 30 gm PO UD PRN; Protocol PRN Reason: Hypoglycemia Protocol Stop: 08/06/24 04:56 Glucose (Glucose 10 Tab/Tube) 4 - 8 tab PO UD PRN; Protocol PRN Reason: Hypoglycemia Protocol Stop: 08/06/24 04:56 Insulin Aspart (Insulin Aspart Per Unit Charge) 0 units SC Q6 [facility] Stop: 08/06/24 05:59 Last Admin: 07/07/24 06:06 Dose: Not Given Levothyroxine Sodium (Levothyroxine Sodium 100 Mcg Tablet) 100 mcg PO DAILYBB [facility] Stop: 08/06/24 06:29 Last Admin: 07/07/24 06:12 Dose: 100 mcg Lisinopril (Lisinopril 10 Mg Tab) 10 mg PO QAM [facility] Stop: 08/06/24 08:59 Last Admin: 07/07/24 09:24 Dose: 10 mg Magnesium Oxide (Magnesium Oxide 400 Mg Tab) 400 mg PO HS [facility] Stop: 08/06/24 20:59 Miscellaneous (Pindolol 5 Mg - Order Awaiting Action) 1 each N/A QS [facility] Stop: 08/06/24 07:59 Miscellaneous (Carbohydrates For Hypoglycemia ) 15 - 30 gm PO UD PRN PRN Reason: Hypoglycemia Protocol Stop: 08/06/24 04:56 Nitroglycerin (Nitroglycerin Sl 0.4 Mg/Tab Tab) 0.4 mg SL Q5M PRN PRN Reason: Chest Pain Stop: 08/06/24 04:56 Pantoprazole Sodium (Pantoprazole 40 Mg Tab) 40 mg PO BID [facility] Stop: 08/06/24 08:59 Last Admin: 07/07/24 09:24 Dose: 40 mg Polyethylene Glycol (Polyethylene (Miralax) 17 Gm Pack) 17 gm PO DAILY PRN PRN Reason: Constipation Stop: 08/06/24 04:56 Rosuvastatin Calcium (Rosuvastatin Calcium 20 Mg Tab) 40 mg PO QAM [facility] Stop: 08/06/24 08:59 Last Admin: 07/07/24 09:24 Dose: 40 mg Tamsulosin HCl (Tamsulosin Hcl 0.4 Mg Cap) 0.4 mg PO QAM [facility] Stop: 08/06/24 08:59 Last Admin: 07/07/24 09:24 Dose: 0.4 mg Topiramate (Topiramate 100 Mg Tab) 100 mg PO BID [facility] Stop: 08/06/24 08:59 Last Admin: 07/07/24 09:23 Dose: 100 mg Trazodone HCl (Trazodone Hcl 50 Mg Tab) 50 mg PO HS [facility] Stop: 08/06/24 20:59 (1) Chest pain Chest pain type: unspecified Qualified Code(s): R07.9 - Chest pain, unspecified
[2024-07-07 12:38] VITALS: BP 121/71
--- NOTE | 2024-07-07 19:44 | Discharge Summary ---
Date of Service July 07, 2024 Admission HPI Per Admitting Provider 59-year-old male with past medical history significant for type 2 diabetes, hypothyroidism, hyperlipidemia, COPD, history of CAD status post stent, hypertension, nonalcoholic fatty liver, BPH, tobacco use disorder, depression, presents with chest pain. Patient was out working when he noticed pain in the middle of the chest 7 /10 in severity. And also since last one week ,on and off he is having some numbness in his left upper arm. Currently pain is minimal. Sometimes with exertion he gets short of breath and attributes it to be not been in shape. Has smoker's cough. No fevers. No headache. No dizziness. No runny nose or sore throat. No nausea. No abdominal pain. Normal bowel and bladder movements. Currently resting comfortably and hemodynamics stable. Past medical history. As mentioned above Past surgical history. Colonoscopy. Cardiac cath with RCA stent in 2002. Cystoscopy EGD. Laparoscopic cholecystectomy. Laparoscopic inguinal hernia repair. Appendectomy. Social history. . Smokes 1.5 pack a day for 36 years. No alcohol use. No drug use. Family history. Daughter had colon cancer. Mother had diabetes. Heart disorder. Hypertension. Father had liver disease. Admission Exam Per Admitting Provider Physical Exam: General- Not in distress Head- atraumatic Eyes- PERRL. ENT- oropharynx clear Neck- supple, no JVD. Lungs- clear to auscultation no wheezing or crackles Heart- regular rhythm; no murmur, no gallop. Abdomen- normal bowel sounds, soft, nontender, no distension Extremities- no pretibial edema, no erythema seen Neuro- alert, oriented PERRL, no facial palsy; no dysarthria; moves extremities Principal Diagnosis Chest painnegative DSE Discharge Exam Lying in bed without any acute distress Constitutional well developed and well nourished; not ill appearing Eyes PERRL, conjunctivae normal, anicteric sclerae ENMT external ear and nose normal, oropharynx normal Neck trachea midline, no thyromegaly Respiratory no respiratory distress Auscultation: lungs clear to auscultation bilaterally Cardiovascular Rate/Rhythm: regular rate, regular rhythm and + bradycardic Heart Sounds: normal S1 and normal S2; no murmur Extremities: no edema Gastrointestinal (Abdomen) Inspection/Auscultation: normal bowel sounds; abdomen not distended Percussion/Palpation: abdomen soft; abdomen nontender Neurologic normal touch/pain/proprioception and moves all extremities; no focal motor deficits Psychiatric A+Ox3, euthymic affect Lymphatic no cervical or axillary lymphadenopathy Discharge Data Allergies Allergy/AdvReac Type Severity Reaction Status Date / Time No Known Allergies Allergy Verified 07/06/24 23:24 Consultations 07/06/24 23:23 ED Decision to Admit Stat 07/07/24 08:00 Consult Cardiology Routine Hospital Course (1) Chest pain: 59-year-old male with past medical history significant for type 2 diabetes, hypothyroidism, hyperlipidemia, COPD, history of CAD status post stent, hypertension, nonalcoholic fatty liver, BPH, tobacco use disorder, depression, presents with chest pain. Patient was out working when he noticed pain in the middle of the chest 7 /10 in severity. And also since last one week ,on and off he is having some numbness in his left upper arm. Currently pain is minimal. Sometimes with exertion he gets short of breath and attributes it to be not been in shape. Has smoker's cough. No fevers. No headache. No dizziness. No runny nose or sore throat. No nausea. No abdominal pain. Normal bowel and bladder movements. Currently resting comfortably and hemodynamics stable. Chest pain Lower central/precordial chest pain with exertion while doing yard work and lasted for 20 minutes The pain radiated to the left arm but did not have any sweating, nausea vomiting or dizziness associated with it He is free from any pain as of this morning His EKG and serial troponins have been unremarkable Appreciate cardiology input and recommendation for DSE Await DSA results for further recommendation Resting echo today showed LV systolic function is normal with EF 55 to 60%, LV wall motion is normal, pulse-wave TDI of the anterior and posterior mitral annulus demonstrates normal LV relaxation and no significant valvular pathology Stress echo showed normal pharmacological stress echocardiogram. No echocardiographic or ECG evidence of myocardial ischemia having achieved heart rate adequate for diagnostic purposes The patient will be discharged home this afternoon History of CAD Status post RCA stenting 2002 On aspirin, pindolol, and Crestor Will continue all of his medications Hyperlipidemia On statin Diabetes Hold glipizide Sliding scale Hemoglobin A1c is 6.2 Blood sugar in the hospital is controlled BPH On Flomax and Proscar Hypertension On pindolol and lisinopril blood pressure is controlled as well Depression Lexapro DVT prophylaxis SCDs Observation med/telemetry Full code Total Time Total Time Spent Total Time Spent (In Minutes): 35 Minutes Discharge Plan Discharge Items Patient Disposition: Home - Self-Care Reason For Visit: CHEST PAIN Discharge Diagnosis: Chest painnegative DSE Condition on Discharge: Good Activity: Resume your previous activity Non-emergency contact: Primary Care Provider Call non-emergency contact if: you have any medication questions and your symptoms worsen Follow-up/Referrals: Mariaa Paige PA-C [Primary Care Provider] - (Date & Time 07/14/2024 9:00 AM Provider: Mariaa Paige PA-C [facility], [facility]) Diet: Carb Consistent or DM2 and Heart Healthy Addtl Attending Provider Instructions: Take it easy for the next few days No change in your current medications Please keep appointments with the healthcare providers Pending Studies at Discharge: No Visit Report Forms: Smoking Cessation Stand-Alone Forms: [employer], Smoking Cessation Medications and DC Order Prescriptions: Continued levothyroxine [Synthroid] 100 mcg tablet 100 mcg PO DAILYBB lisinopril [Zestril] 10 mg tablet 10 mg PO QAM finasteride [Proscar] 5 mg tablet 5 mg PO QAM Patient Comments: 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 rosuvastatin [Crestor] 40 mg tablet 40 mg PO QAM trazodone 50 mg tablet 50 mg PO HS famotidine 40 mg tablet 40 mg PO HS PRN (Reason: Heartburn) omeprazole 20 mg capsule,delayed release(DR/EC) 20 mg PO BID escitalopram oxalate 10 mg tablet 15 mg PO QAM aspirin 81 mg Tablet,Delayed Release (Dr/Ec) 81 mg PO QAM mecobalamin (vitamin B12) 1,000 mcg tablet,disintegrating 1,000 mcg sublingual QAM topiramate 100 mg tablet 100 mg PO BID tamsulosin [Flomax] 0.4 mg capsule 0.4 mg PO QAM riboflavin (vitamin B2) [Vitamin B-2] 100 mg Tablet 400 mg PO DAILY glipizide 5 mg Tablet Extended Release 24hr 5 mg PO DAILYBB rizatriptan 10 mg Tablet,Disintegrating 10 mg PO DIRECTED PRN (Reason: Migraine Headache) Rx Instructions: take 1 tab at onset of headache; if no relief may repeat 1 tab after at least 2 hrs; max = 3 tabs/24 hr pindolol 5 mg Tablet 5 mg PO BID magnesium oxide 400 mg magnesium Tablet 400 mg PO HS Discharge Orders: Discharge Order (Routine); Ordered 07/07/24 Ordered By: Stefan Ascencio/Other Patient Handouts: Managing Type 2 Diabetes Admission Data Admit Date/Time: 07/07/24 03:56 Attending Provider: Stefan Garcia Admit Provider: Zana Lanier Primary Care Provider: Mariaa Paige Other Providers: Zana Lanier; Arturo Bill Other Interventions: Discharge Summary Assessment (RN) Last Done: 07/07/24 12:37
[2024-07-07] MEDS ORDERED: MAGNESIUM OXIDE 400 MG TAB PO SCH (21:00)
[2024-07-07] MEDS ORDERED: traZODone HCL 50 MG TAB PO SCH (21:00)
== END 2024-07-07 12:54 | disposition home or self-care (01) ==
LOC: 2N 21:35 → ED 21:35 → 2N 07-07 04:45